=== PATIENT | male | born 1940 | race Caucasian/White ===

== ENCOUNTER 2017-11-07 15:31 | Inpatient (IN) | payer OTHER, MEDICARE ==
[2017-11-07] VITALS (10 sets, daily range): BP systolic 162–246; BP diastolic 80–108; PULSE 80–92; RESP 16–22; TEMP 98.3; O2SAT 93–98
[~2017-11-07] VITALS: Ht 181.6 cm; Wt 78.0 kg
[~2017-11-07 15:31] MED LIST: ADAL60TA9 PO; ATEN1TAB74 PO; ATOR20TA PO; ATRO17AE INH; CLON.2 PO; COUM5TAB PO; COUM7.5T PO; DOCU100T9 PO; FISH100020 PO; GABA100C4 PO; LISI20 PO; NITR.4 SL; OMEP20TA39 PO; OXYB5TAB PO; POTA-243 PO; TAB-TAB PO; TAMS0.4C67 PO; TRAM50 PO; VITATAB25 PO
[2017-11-07] MEDS ORDERED: IOHEXOL 350 MG/ML 10 ML VIAL (for RAD DIAG) IVCONTRAST ONE (15:32)
[2017-11-07] MEDS ORDERED: SODIUM CHLOR 0.9% 1000 ML INJ 1,000 ML IV SCH (15:46)
[2017-11-07] MEDS ORDERED: ONDANSETRON HCL 4 MG/2 ML VIAL ONE (15:48)
[2017-11-07] MEDS ORDERED: SODIUM CHLORIDE 0.9% FLUSH 10 ML FLUSH IV FLUSH PRN ×2 (16:00→22:15)
[2017-11-07] MEDS ORDERED: ONDANSETRON HCL 4 MG/2 ML VIAL IVP ONE (16:00)
[2017-11-07 16:08] LABS: AUTOMATED NEUTROPHIL # 11.7 TH/MM3 (1.8-7.7); BASOPHIL # 0.1 TH/MM3 (0-0.2); BASOPHIL % 0.5 % (0.0-2.0); HEMATOCRIT 50.3 % (39.0-51.0); HEMOGLOBIN 16.5 GM/DL (13.0-17.0); LYMPH % 13.7 % (9.0-44.0); MEAN CELL VOLUME 89.8 FL (80.0-100.0); MEAN CORPUSCULAR HEMOGLOBIN 29.5 PG (27.0-34.0); MEAN CORPUSCULAR HGB CONC 32.9 % (32.0-36.0); MEAN PLATELET VOLUME 8.9 FL (7.0-11.0); NEUT % 78.8 % (16.0-70.0); PLATELET COUNT 410 TH/MM3 (150-450); RED CELL DISTRIBUTION WIDTH 13.7 % (11.6-17.2); WHITE BLOOD COUNT 14.9 TH/MM3 (4.0-11.0)
[2017-11-07] MEDS ORDERED: METOCLOPRAMIDE HCL 10 MG/2 ML VIAL IV PUSH ONE (16:30)
[2017-11-07 16:37] LABS: ALKALINE PHOSPHATASE 90 U/L (45-117); TOTAL BILIRUBIN ADULT 0.5 MG/DL (0.2-1.0); TOTAL PROTEIN 7.7 GM/DL (6.4-8.2)
--- NOTE | 2017-11-07 16:37 | PD ---
HPI Chief Complaint: GI Complaint Time Seen by Provider: 15:37 Travel History International Travel<30 days: No Contact w/Intl Traveler<30days: No Traveled to known affect area: No History of Present Illness HPI 77-year-old male patient presents emergency department via EMS for evaluation after acute onset nausea and vomiting that occurred while he is at the [facility] today. Patient states he ate a tuna fish sandwich for lunch prior to going to the [facility] for routine blood work. Patient vomited undigested food. No hematemesis. Patient is continuing to retch but vomiting has ceased. Patient was recently admitted to [facility] in [facility] on with INR of 8. Patient was taken off of his Coumadin and given vitamin K. Patient states they found fluid on his lungs and he was admitted to the hospital for further workup. Patient was discharged a couple days ago. 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 Patient is on Coumadin for his abdominal replacement however is given Lovenox at this time due to his high INR 4 days ago. Patient states he is unsure if they're trying to bridge him back onto the Coumadin regimen at this time. Patient denies any smoking or alcohol. Patient states he hasn't smoked in 10 years. Patient denies any fevers, chills, malaise. She denies any cough or nasal congestion. Patient is noted to be retching at our facility. PFSH Past Medical History Hx Anticoagulant Therapy: Yes (WARFARIN AND LOVENOX) AAA: Yes Heart Rhythm Problems: Yes Cancer: No Cardiovascular Problems: Yes High Cholesterol: Yes Chest Pain: No Congestive Heart Failure: No Cerebrovascular Accident: Yes Coronary Artery Disease: Yes Diminished Hearing: No Diverticulitis: Yes Endocrine: No Gastrointestinal Disorders: Yes (STOMACH PAIN) GERD: Yes Hepatitis: No Hiatal Hernia: Yes Hypertension: Yes Immune Disorder: No Medical other: Yes (PVD) Musculoskeletal: Yes Neurologic: Yes (NEUROPATHY TA LEGS) Psychiatric: No Respiratory: Yes Myocardial Infarction: Yes Ulcer: Yes ?: Not Past Surgical History Abdominal Surgery: Yes (HERNIA AGE 1) AICD: Yes (BIOTRONIK ) Body Medical Devices: METAL AORTIC VALVE Cardiac Surgery: Yes (AORTIC VALVE REPLACEMENT AND AORTIC STENT,DEFIBRILLATOR) Coronary Stent: Yes Ear Surgery: No Endocrine Surgery: No Eye Surgery: No Genitourinary Surgery: Yes (LEFT IHR) Joint Replacement: Yes (LEFT KNEE) Neurologic Surgery: No Oral Surgery: Yes (TONSILLECTOMY) Pacemaker: Yes (BIOTRONIK ) Prostatectomy: No Thoracic Surgery: No Tonsillectomy: Yes Valve Replacement: Yes (AORTIC) Other Surgery: Yes (LEFT KNEE REPLACEMENT, AAA REPAIR) Social History Alcohol Use: No Tobacco Use: No Substance Use: No Allergies-Medications (Allergen,Severity, Reaction): Coded Allergies: povidone-iodine (Unverified Allergy, Severe, BLISTERING TO TOPICAL BETADINE, 11/07/17) soap (Verified Allergy, Unknown, 11/07/17) Reported Meds & Prescriptions Reported Meds & Active Scripts Active Zofran Odt (Ondansetron Odt) 4 Mg Tab 4 Mg SL Q6HR PRN Reported Warfarin 5 Mg Tab 5 Mg PO DAILY Trospium ER 60 Mg Cap 20 Mg PO DAILY Tramadol (Tramadol HCl) 50 Mg Tab 50 Mg PO Q6H PRN Tamsulosin (Tamsulosin HCl) 0.4 Mg Cap 0.4 Mg PO HS Potassium Chloride ER (Potassium Chloride) 20 Meq Tab 20 Meq PO DAILY Pantoprazole (Pantoprazole Sodium) 20 Mg Tab 20 Mg PO DAILY Clonidine (Clonidine HCl) 0.2 Mg Tab 0.2 Mg PO DAILY Vitamin D3 (Cholecalciferol) 1,000 Unit Cap 1,000 Units PO DAILY Atorvastatin (Atorvastatin Calcium) 20 Mg Tab 20 Mg PO HS Ventolin Hfa 18 GM Inh (Albuterol Sulfate) 90 Mcg/Act Aer 1 Puff INH Q4H PRN Atenolol 50 Mg Tab 50 Mg PO DAILY Review of Systems Except as stated in HPI: all other systems reviewed are Neg Physical Exam Narrative GENERAL: Well-nourished, well-developed 77-year-old male patient that is in moderate distress with continued retching. SKIN: Focused skin assessment pale/cool/dry. HEAD: Atraumatic. Normocephalic. EYES: Pupils equal and round. No scleral icterus. No injection or drainage. ENT: No nasal bleeding or discharge. Mucous membranes pink and moist. NECK: Trachea midline. No JVD. CARDIOVASCULAR: Regular rate and rhythm. No murmur appreciated. RESPIRATORY: No accessory muscle use. Clear to auscultation. Breath sounds equal bilaterally. GASTROINTESTINAL: Abdomen soft, diffusely tender to palpation, more tender in the epigastric region, nondistended. Negative Bella sign, no rebound tenderness. MUSCULOSKELETAL: No obvious deformities. No clubbing. No cyanosis. No edema. NEUROLOGICAL: Awake and alert. No obvious cranial nerve deficits. Motor grossly within normal limits. Normal speech. Data Data Last Documented VS Vital Signs Date Time Temp Pulse Resp B/P (MAP) Pulse Ox O2 Delivery O2 Flow Rate FiO2 11/07/17 21:35 82 16 227/104 (145) 95 11/07/17 16:28 98.3 Orders Orders Complete Blood Count With Diff (11/07/17 15:46) Comprehensive Metabolic Panel (11/07/17 15:46) Lipase (11/07/17 15:46) Prothrombin Time / Inr (Pt) (11/07/17 15:46) Act Partial Throm Time (Ptt) (11/07/17 15:46) Urinalysis - C+S If Indicated (11/07/17 15:46) Ct Abd/Pel W Iv Contrast(Rout) (11/07/17 15:46) Iv Access Insert/Monitor (11/07/17 15:46) Ecg Monitoring (11/07/17 15:46) Oximetry (11/07/17 15:46) Ondansetron Inj (Zofran Inj) (11/07/17 16:00) Sodium Chlor 0.9% 1000 Ml Inj (Ns 1000 M (11/07/17 15:46) Sodium Chloride 0.9% Flush (Ns Flush) (11/07/17 16:00) Electrocardiogram (11/07/17 15:46) Ondansetron Inj (Zofran Inj) (11/07/17 15:48) Metoclopramide Inj (Reglan Inj) (11/07/17 16:30) Chest, Single Ap (11/07/17 17:02) Iohexol 350 Inj (Omnipaque 350 Inj) (11/07/17 15:32) Ketorolac Inj (Toradol Inj) (11/07/17 17:45) Morphine Inj (Morphine Inj) (11/07/17 18:30) Labetalol Inj (Trandate Inj) (11/07/17 18:30) Sodium Chlor 0.9% 1000 Ml Inj (Ns 1000 M (11/07/17 18:30) Morphine Inj (Morphine Inj) (11/07/17 19:00) Enoxaparin Inj (Lovenox Inj) (11/07/17 20:00) Clonidine (Catapres) (11/07/17 20:45) Promethazine Inj (Phenergan Inj) (11/07/17 21:15) B-Type Natriuretic Peptide (11/07/17 21:35) Furosemide Inj (Lasix Inj) (11/07/17 21:45) Labetalol Inj (Trandate Inj) (11/07/17 21:45) Labetalol Inj (Trandate Inj) (11/07/17 21:45) Admit Order (Ed Use Only) (11/07/17 21:51) Labs Laboratory Tests Test 11/07/17 15:50 11/07/17 16:20 11/07/17 17:30 White Blood Count 14.9 TH/MM3 Red Blood Count 5.60 MIL/MM3 Hemoglobin 16.5 GM/DL Hematocrit 50.3 % Mean Corpuscular Volume 89.8 FL Mean Corpuscular Hemoglobin 29.5 PG Mean Corpuscular Hemoglobin Concent 32.9 % Red Cell Distribution Width 13.7 % Platelet Count 410 TH/MM3 Mean Platelet Volume 8.9 FL Neutrophils (%) (Auto) 78.8 % Lymphocytes (%) (Auto) 13.7 % Monocytes (%) (Auto) 7.0 % Eosinophils (%) (Auto) 0.0 % Basophils (%) (Auto) 0.5 % Neutrophils # (Auto) 11.7 TH/MM3 Lymphocytes # (Auto) 2.0 TH/MM3 Monocytes # (Auto) 1.0 TH/MM3 Eosinophils # (Auto) 0.0 TH/MM3 Basophils # (Auto) 0.1 TH/MM3 CBC Comment AUTO DIFF Differential Comment AUTO DIFF CONFIRMED Platelet Estimate Platelet Morphology Comment Red Cell Morphology Comment Blood Urea Nitrogen 40 MG/DL Creatinine 1.12 MG/DL Random Glucose 239 MG/DL Total Protein 7.7 GM/DL Albumin 3.3 GM/DL Calcium Level 9.0 MG/DL Alkaline Phosphatase 90 U/L Aspartate Amino Transf (AST/SGOT) 30 U/L Alanine Aminotransferase (ALT/SGPT) 17 U/L Total Bilirubin 0.5 MG/DL Sodium Level 136 MEQ/L Potassium Level 4.6 MEQ/L Chloride Level 99 MEQ/L Carbon Dioxide Level 28.5 MEQ/L Anion Gap 9 MEQ/L Estimat Glomerular Filtration Rate 63 ML/MIN Lipase 124 U/L Prothrombin Time 11.5 SEC Prothromb Time International Ratio 1.1 RATIO Activated Partial Thromboplast Time 22.5 SEC Urine Color YELLOW Urine Turbidity CLEAR Urine pH 6.5 Urine Specific Kosse 1.029 Urine Protein TRACE mg/dL Urine Glucose (UA) 70 mg/dL Urine Ketones TRACE mg/dL Urine Occult Blood NEG Urine Nitrite NEG Urine Bilirubin NEG Urine Urobilinogen LESS THAN 2.0 MG/DL Urine Leukocyte Esterase NEG Urine RBC LESS THAN 1 /hpf Urine WBC LESS THAN 1 /hpf Urine Squamous Epithelial Cells <1 /hpf Urine Mucus FEW /lpf Microscopic Urinalysis Comment CULT NOT INDICATED MDM Medical Decision Making Medical Screen Exam Complete: Yes Emergency Medical Condition: Yes Interpretation(s) Hypertensive, afebrile Differential Diagnosis Differential diagnoses include but not limited to gastroenteritis, foodborne illness, electrolyte abnormality, coronary event Narrative Course Patient placed on monitor and IV obtained. Blood work sent to the lab. CBC, CMP, lipase, PT INR, UA ordered and pending. CT of the abdomen ordered and pending. Chest x-ray ordered and pending. EKG ordered and interpreted. EKG shows atrial pacemaker with HR 80. 4mg Zofran IV ordered. Patient continued to retch. 10mg IV Reglan ordered. Patient's retching resolved. 1L NS bolus given. CBC shows leukocytosis at 14.9 CMP shows BUN 40 and creatinine 1.12, GFR 63, Glucose 239, Albumin 3.3 Lipase 124 PT/INR APTT 22.5 otherwise no acute abnormality UA show glucose and keytones, no other acute abnormality Chest x-ray shows cardiomegaly, no acute pulmonary disease. 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 Patient given morphine and Toradol for pain management. Patient's BP elevated. Patient given labetalol IV and Catapres by mouth. Patient's blood pressure is not trending downward. Patient's blood pressure remains elevated and is 242/112 currently. We finally received the paperwork from [facility], as requested upon patient's arrival and it shows that with the patient was admitted there he had congestive heart failure. Patient given 40 mg IV Lasix. The patient did receive normal saline bolus in our facility prior to the paperwork showing hx of CHF. Pt did not report hx of CHF. Patient will be admitted to the hospital for intractable nausea, vomiting and hypertensive crisis. And possible fluid overload. Initial chest x-ray shows no acute disease. Dr Laura accepts admission. Patient placed on a labetalol drip and admitted to the hospital for further observation. Chest X-Ray 11/07/17 1702 Signed Impressions: Service Date/Time: November 17:36 - CONCLUSION: 1. Cardiomegaly. No acute pulmonary disease. Shin Jackson MD Abdomen/Pelvis CT 11/07/17 1546 Signed Impressions: Service Date/Time: November 17:00 - CONCLUSION: 1. 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 2. Occluded left iliac limb of the aortobiiliac graft. 3. Probable scar or atelectasis and/or infiltrate left lung base and follow up is suggested with noncontrast chest CT in 6 months. Juana Michel MD Diagnosis Primary Impression: Nausea & vomiting Qualified Codes: R11.2 - Nausea with vomiting, unspecified Additional Impression: HTN (hypertension) Qualified Codes: I10 - Essential (primary) hypertension Admitting Information Admitting Physician Requests: Observation Referrals: Primary Care Physician Patient Instructions: Acute Nausea and Vomiting (ED), General Instructions Additional Instructions: Please return to emergency department if your symptoms return or worsen. Follow up with your primary care provider. Take Zofran as directed as needed for nausea or vomiting. Stay hydrated. CT shows scar, atelectasis and/or infiltrate in the left lung base. Noncontrasted chest CT was recommended in 6 months for follow-up. Med/Other Pt SpecificInfo: Prescription(s) given Scripts Ondansetron Odt (Zofran Odt) 4 Mg Tab 4 MG SL Q6HR Y for Nausea/Vomiting, #15 TAB 0 Refills Prov: Veda Tenorio 11/07/17 Disposition: 01 DISCHARGE HOME Condition: Stable Veda Tenorio Nov 07, 2017 16:37
[2017-11-07 16:39] LABS: ALBUMIN 3.3 GM/DL (3.4-5.0); ALT (GPT) 17 U/L (12-78); AST (GOT) 30 U/L (15-37); BICARBONATE 28.5 MEQ/L (21.0-32.0); BLOOD UREA NITROGEN 40 MG/DL (7-18); CHLORIDE 99 MEQ/L (98-107); CREATININE 1.12 MG/DL (0.60-1.30); GLOMERULAR FILTRATION RATE 63 ML/MIN (>89); GLUCOSE,RANDOM 239 MG/DL (74-106); LIPASE 124 U/L (73-393); SODIUM (NA) 136 MEQ/L (136-145)
[2017-11-07] MEDS ORDERED: CLON0.2T PO (17:18)
[2017-11-07] MEDS ORDERED: PANT20TA2 PO (17:18)
[2017-11-07] MEDS ORDERED: TAMS0.4C4 PO (17:18)
[2017-11-07] MEDS ORDERED: VENTAER INH (17:18)
[2017-11-07] MEDS ORDERED: WARF-23 PO (17:18)
[2017-11-07] MEDS ORDERED: TROS60CA2 PO (17:18)
[2017-11-07] MEDS ORDERED: POTA-163 PO (17:18)
[2017-11-07] MEDS ORDERED: CHOL10008 PO (17:18)
[2017-11-07] MEDS ORDERED: ATOR20TA15 PO (17:18)
[2017-11-07] MEDS ORDERED: ATEN50TA PO (17:18)
[2017-11-07] MEDS ORDERED: TRAM50TA PO (17:18)
--- NOTE | 2017-11-07 17:34 | RADRPT ---
EXAM DATE/TIME: 11/07/2017 17:00 [facility] COMPARISON: No previous studies available for comparison. INDICATIONS : Diffuse abdomen in epigastric region. IV CONTRAST: 76 cc Omnipaque 350 (iohexol) IV ORAL CONTRAST: No oral contrast ingested. RADIATION DOSE: 6.85 CTDIvol (mGy) MEDICAL HISTORY : Cardiovascular disease. Diverticulosis. Hypertension.Hiatal hernia. SURGICAL HISTORY : Pacemaker. Defibrillator. ENCOUNTER: Initial ACUITY: 1 week PAIN SCALE: 7/10 LOCATION: Bilateral upper quadrant TECHNIQUE: Volumetric scanning of the abdomen and pelvis was performed. Using automated exposure control and adjustment of the mA and/or kV according to patient size, radiation dose was kept as low as reasonably achievable to obtain optimal diagnostic quality images. DICOM format image data is av ailable electronically for review and comparison. FINDINGS: CT Abdomen: The liver, spleen, pancreas, left kidney, adrenals are unremarkable. There is scarring in the right upper pole kidney and there is an approximate 2.6 cm mass or pathological lymph nodes at t he level of the renal hilum in the retroperitoneum behind the IVC. There is no evidence for any appre ciable free fluid, or bowel obstruction. Slight left lung base area of irregular density is present posteriorly may represent atelectasis or scar, however should be followed. Aortobiiliac stent is iden tified and the left iliac graft does not have any contrast in it and occluded for the most part. The graft however is not adequately characterize. There are gas bubbles in the subcutaneous tissues anter iorly probably from injection sites. CT pelvis: There is no evidence for mass, abscess formation, or any significant adenopathy within the pelvis. The prostate gland is inhomogeneous and measures 3.8 x 4.0 cm in AP and transverse diameters and nonspecific. There are scattered diverticuli mainly in the sigmoid colon without definite signs of diverticulitis. CONCLUSION: 1. 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 2. Occluded left iliac limb of the aortobiiliac graft. 3. Probable scar or atelectasis and/or infiltrate left lung base and follow up is suggested with nonc ontrast chest CT in 6 months. Juana Michel MD on November 07, 2017 at 17:23 Board Certified Radiologist. This report was verified electronically.
[2017-11-07] MEDS ORDERED: KETOROLAC TROMETHAMINE 30 MG/ML (IVP) VIAL IV PUSH ONE (17:45)
--- NOTE | 2017-11-07 17:50 | RADRPT ---
EXAM DATE/TIME: 11/07/2017 17:36 [facility] COMPARISON: CHEST SINGLE AP, August 21, 2016, 14:29. INDICATIONS : Abdominal pain. No chest complaints. MEDICAL HISTORY : Myocardial infarction. Hypercholesterolemia. Hypertension. Abdominal aortic aneurysm, coronary ar kiel disease, Irregular heart beat. SURGICAL HISTORY : Aortic valve replacement. Aortic stent. Defibrillator. ENCOUNTER: Initial ACUITY: 3 days PAIN SCORE: 6/10 LOCATION: Bilateral chest FINDINGS: The cardiac silhouette is enlarged in transverse diameter. Median sternotomy wires are present. A bip olar pacemaker is in place via a left sided approach. The lungs are free of acute parenchymal opacity . No effusions are identified. The background interstitium is prominent though this is likely chronic in nature. CONCLUSION: 1. Cardiomegaly. No acute pulmonary disease. Shin Jackson MD on November 07, 2017 at 17:47 Board Certified Radiologist. This report was verified electronically.
[2017-11-07 18:12] LABS: INTERNATIONAL NORMALIZED RATIO 1.1 RATIO; PROTHROMBIN TIME - PATIENT 11.5 SEC (9.8-11.6)
[2017-11-07 18:25] LABS: BILIRUBIN, URINE NEG (NEG); BLOOD, URINE NEG (NEG); GLUCOSE,URINE 70 mg/dL (NEG); KETONE, URINE TRACE mg/dL (NEG); MUCUS URINE FEW /lpf (OCC); NITRITE,URINE NEG (NEG); PH, URINE 6.5 (5.0-8.5); SQUAMOUS EPITHELIAL CELL URINE <1 /hpf (0-5); URINE COLOR YELLOW (YELLW/STRAW); URINE LEUKOCYTE ESTERASE NEG (NEG)
[2017-11-07] MEDS ORDERED: LABETALOL HCL 100 MG/20 ML VIAL IV PUSH ONE ×2 (18:30→21:45)
[2017-11-07] MEDS ORDERED: SODIUM CHLOR 0.9% 1000 ML INJ 1,000 ML IV ONE (18:30)
[2017-11-07] MEDS ORDERED: MORPHINE SULFATE 2 MG/ML INJ IV PUSH ONE ×2 (18:30→19:00)
[2017-11-07] MEDS ORDERED: ZOFR4TAB3 SL (19:55)
[2017-11-07] MEDS ORDERED: ENOXAPARIN SODIUM 80 MG/0.8 ML SYRINGE SQ ONE (20:00)
[2017-11-07] MEDS ORDERED: cloNIDine HCL 0.2 MG TAB PO ONE (20:45)
[2017-11-07] MEDS ORDERED: PROMETHAZINE INJ 25 MG/ML VIAL IM ONE (21:15)
[2017-11-07] MEDS ORDERED: FUROSEMIDE 40 MG/4 ML VIAL IV PUSH ONE (21:45)
[2017-11-07] MEDS ORDERED: ACETAMINOPHEN 325 MG TAB PO PRN (22:15)
[2017-11-07] MEDS ORDERED: MAGNESIUM HYDROXIDE SUSP 30 ML CUP PO PRN (22:15)
[2017-11-07] MEDS ORDERED: NALOXONE HCL 0.4 MG/ML AMP IV PUSH PRN (22:15)
[2017-11-07] MEDS ORDERED: SENNOSIDES 8.6 MG TAB PO PRN (22:15)
[2017-11-07] MEDS ORDERED: LACTULOSE SYRUP 20 GM/30 ML CUP PO PRN (22:15)
[2017-11-07] MEDS ORDERED: BISACODYL 10 MG SUPP RECTAL PRN (22:15)
[2017-11-07] MEDS: LABETALOL INJ 500 MG in SODIUM CHLORIDE 0.9% INJ 150 ML IV PRN (22:24)
[2017-11-07] MEDS ORDERED: ENOX80P SQ (22:54)
[2017-11-08] VITALS (13 sets, daily range): BP systolic 81–162; BP diastolic 42–86; PULSE 61–79; RESP 15–20; TEMP 97.6–98.1; O2SAT 92–96
[2017-11-08] MEDS: LABETALOL INJ 500 MG in SODIUM CHLORIDE 0.9% INJ 150 ML IV PRN ×2 (01:44→04:38)
[2017-11-08 04:28] LABS: AUTOMATED NEUTROPHIL # 8.6 TH/MM3 (1.8-7.7); BASOPHIL % 0.1 % (0.0-2.0); HEMATOCRIT 43.2 % (39.0-51.0); HEMOGLOBIN 14.8 GM/DL (13.0-17.0); LYMPH % 9.8 % (9.0-44.0); MEAN CELL VOLUME 89.8 FL (80.0-100.0); MEAN CORPUSCULAR HEMOGLOBIN 30.7 PG (27.0-34.0); MEAN CORPUSCULAR HGB CONC 34.2 % (32.0-36.0); MEAN PLATELET VOLUME 8.3 FL (7.0-11.0); MONO % 7.4 % (0.0-8.0); MONOCYTE # 0.8 TH/MM3 (0-0.9); NEUT % 82.7 % (16.0-70.0); PLATELET COUNT 282 TH/MM3 (150-450); RED BLOOD COUNT 4.81 MIL/MM3 (4.50-5.90); RED CELL DISTRIBUTION WIDTH 13.7 % (11.6-17.2); WHITE BLOOD COUNT 10.4 TH/MM3 (4.0-11.0)
[2017-11-08 04:48] LABS: BICARBONATE 29.4 MEQ/L (21.0-32.0); CALCIUM 8.1 MG/DL (8.5-10.1); CREATININE 1.03 MG/DL (0.60-1.30)
[2017-11-08] MEDS ORDERED: TROSPIUM 20 MG PO SCH (09:00)
[2017-11-08] MEDS: DOCUSATE SODIUM 50 MG/SENNA 8.6 MG TAB PO SCH ×2 (09:07→21:25)
[2017-11-08] MEDS: PANTOPRAZOLE SOD 20 MG DELAYED RELEASE TAB PO SCH (09:07)
[2017-11-08] MEDS: cloNIDine HCL 0.2 MG TAB PO SCH (09:07)
[2017-11-08] MEDS: ATENOLOL 50 MG TAB PO SCH (09:07)
[2017-11-08] MEDS: SODIUM CHLORIDE 0.9% FLUSH 10 ML FLUSH IV FLUSH SCH ×2 (09:08→21:25)
--- NOTE | 2017-11-08 12:07 | HHI.HP ---
[facility] Service [facility] Primary Care Physician [facility] Admission Diagnosis intractable nausea, hypertensive urgency, abdominal mass Diagnoses: Chief Complaint: intractable emesis and hypertensive urgency Travel History International Travel<30 Days: No Contact w/Intl Traveler <30 Da: No Traveled to Known Affected Are: No History of Present Illness This is a 77-year-old male past history of coronary artery disease status post AICD placement, AAA with stent placement, aortic valve replacement with artificial metal valve who presented with intractable emesis and hypertension urgency. Patient was woken up by me and did not want to give me a history. He was very upset that I woke him up. When I asked him what brought him in the hospital he stated that "They sent me here." When I asked who was they he stated " I do not know." Patient nurse then walked into the room during the interview. She asked him to sit up and he did. I then tried to ask more questions but he refused to answer. He only seems to answer simple yes or no questions. I also asked him who [facility] When I asked him if he took his medication he stated "I take my medication when I'm at home." He denied any emesis, nausea, pain, headache, visual changes, chest pain, palpitation, lightheadedness//dizziness. I also asked patient who his vascular surgeon and roving inspector were he stated that [facility]. He does follow commands. I reviewed medical records were stated that patient was recently admitted at [facility] where he was admitted due to CHF exacerbation and supratherapeutic INR. He was discharged on Lovenox bridging with Coumadin. Then patient developed nausea and vomiting after eating a tuna salad. It was also discovered in the ED that he was hypertensive with a systolic blood pressure in the 200. He was put on a labetalol drip and was transferred to the [facility]. During my interview with the patient he is now hypotensive and off the labetalol drip. When I discussed CT scan results about a possible mass. Patient stated that he has no history of cancer. All other review of system reviewed and negative. Past Family Social History Past Medical History [place] with AICD AAA with aortic stent Aortic valve replacement with artificial metal valve on anticoagulation with Coumadin History of colonic polyp Past Surgical History AICD, aortic valve replacement, colonoscopy with polyp removal, left total knee replacement, aortic stent for AAA Reported Medications Zofran Odt (Ondansetron Odt) 4 Mg Tab 4 Mg SL Q6HR PRN Lovenox Inj (Enoxaparin Sodium) 80 mg/0.8 ML Syr 80 Mg SQ DAILY Warfarin 5 Mg Tab 5 Mg PO DAILY Trospium ER 60 Mg Cap 20 Mg PO DAILY Tramadol (Tramadol HCl) 50 Mg Tab 50 Mg PO Q6H PRN Tamsulosin (Tamsulosin HCl) 0.4 Mg Cap 0.4 Mg PO HS Potassium Chloride ER (Potassium Chloride) 20 Meq Tab 20 Meq PO DAILY Pantoprazole (Pantoprazole Sodium) 20 Mg Tab 20 Mg PO DAILY Clonidine (Clonidine HCl) 0.2 Mg Tab 0.2 Mg PO DAILY Vitamin D3 (Cholecalciferol) 1,000 Unit Cap 1,000 Units PO DAILY Atorvastatin (Atorvastatin Calcium) 20 Mg Tab 20 Mg PO HS Ventolin Hfa 18 GM Inh (Albuterol Sulfate) 90 Mcg/Act Aer 1 Puff INH Q4H PRN Atenolol 50 Mg Tab 50 Mg PO DAILY Allergies: Coded Allergies: povidone-iodine (Unverified Allergy, Severe, BLISTERING TO TOPICAL BETADINE, 11/07/17) soap (Verified Allergy, Unknown, 11/07/17) Active Ordered Medications Current Medications Ondansetron HCl (Zofran Inj) 4 mg ONCE ONCE IVP Last administered on 11/07/17at 15:54; Start 11/07/17 at 16:00; Stop 11/07/17 at 16:01; Status DC Sodium Chloride 1,000 ml @ 1,000 mls/hr Q1H IV Last administered on 11/07/17at 16:15; Start 11/07/17 at 15:46; Stop 11/07/17 at 16:45; Status DC Sodium Chloride (NS Flush) 2 ml UNSCH PRN IV FLUSH FLUSH AFTER USING IV ACCESS ; Start 11/07/17 at 16:00; Stop 11/07/17 at 22:38; Status DC Ondansetron HCl (Zofran Inj) 4 mg STK-MED ONCE .ROUTE ; Start 11/07/17 at 15:48; Stop 11/07/17 at 15:49; Status DC Metoclopramide HCl (Reglan Inj) 10 mg ONCE ONCE IV PUSH Last administered on at 16:34; Start 11/07/17 at 16:30; Stop 11/07/17 at 16:31; Status DC Iohexol (Omnipaque 350 Inj) 76 ml STK-MED ONCE IVCONTRAST Last administered on 11/07/17at 15:32; Start 11/07/17 at 15:32; Stop 11/07/17 at 17:21; Status DC Ketorolac Tromethamine (Toradol Inj) 30 mg ONCE ONCE IV PUSH Last administered on 11/07/17at 18:17; Start 11/07/17 at 17:45; Stop 11/07/17 at 17:46; Status DC Morphine Sulfate (Morphine Inj) 4 mg ONCE ONCE IV PUSH Last administered on 11/07/17at 18:22; Start 11/07/17 at 18:30; Stop 11/07/17 at 18:31; Status DC Labetalol HCl (Trandate Inj) 20 mg ONCE ONCE IV PUSH Last administered on at 18:30; Start 11/07/17 at 18:30; Stop 11/07/17 at 18:31; Status DC Sodium Chloride 1,000 ml @ 999 mls/hr BOLUS ONCE IV Last administered on at 18:35; Start 11/07/17 at 18:30; Stop 11/07/17 at 19:30; Status DC Morphine Sulfate (Morphine Inj) 4 mg ONCE ONCE IV PUSH Last administered on 11/07/17at 19:05; Start 11/07/17 at 19:00; Stop 11/07/17 at 19:01; Status DC Enoxaparin Sodium (Lovenox Inj) 80 mg ONCE ONCE SQ Last administered on at 00:15; Start 11/07/17 at 20:00; Stop 11/07/17 at 20:01; Status DC Clonidine (Catapres) 0.2 mg ONCE ONCE PO Last administered on 11/07/17at 20:51; Start 11/07/17 at 20:45; Stop 11/07/17 at 20:46; Status DC Promethazine HCl (Phenergan Inj) 25 mg ONCE ONCE IM Last administered on at 21:09; Start 11/07/17 at 21:15; Stop 11/07/17 at 21:16; Status DC Furosemide (Lasix Inj) 40 mg ONCE ONCE IV PUSH Last administered on 11/07/17at 21:49; Start 11/07/17 at 21:45; Stop 11/07/17 at 21:46; Status DC Labetalol HCl (Trandate Inj) 10 mg BOLUS ONCE IV PUSH Last administered on 11/07at 21:45; Start 11/07/17 at 21:45; Stop 11/07/17 at 21:47; Status DC Labetalol HCl 500 mg/Sodium Chloride 250 ml @ 60 mls/hr TITRATE PRN IV Blood pressure management Last administered on 11/08/17at 04:38; Start 11/07/17 at 21:45 Promethazine HCl (Phenergan Inj) 25 mg Q4H PRN IM N/V resistent to Zofran; Start 11/07/17 at 22:15 Sodium Chloride (NS Flush) 2 ml UNSCH PRN IV FLUSH FLUSH AFTER USING IV ACCESS ; Start 11/07/17 at 22:15 Sodium Chloride (NS Flush) 2 ml BID IV FLUSH Last administered on 11/08/17at 09: 08; Start 11/08/17 at 09:00 Acetaminophen (Tylenol) 650 mg Q4H PRN PO TEMP > 100.4; Start 11/07/17 at 22:15 Ondansetron HCl (Zofran Inj) 4 mg Q6H PRN IVP NAUSEA OR VOMITING; Start at 22:15 Naloxone HCl (Narcan Inj) 0.4 mg UNSCH PRN IV PUSH SEE LABEL COMMENTS; Start at 22:15 Senna/Docusate Sodium (Lala-Colace) 1 tab BID PO Last administered on 11/08/17at 09:07; Start 11/08/17 at 09:00 Magnesium Hydroxide (Milk Of Magnesia Liq) 30 ml Q12H PRN PO Mild constipation ; Start 11/07/17 at 22:15 Sennosides (Senokot) 17.2 mg Q12H PRN PO Moderate constipation; Start 11/07/17 at 22:15 Bisacodyl (Dulcolax Supp) 10 mg DAILY PRN RECTAL SEVERE CONSITIPATION; Start at 22:15 Lactulose (Lactulose Liq) 30 ml DAILY PRN PO SEVERE CONSITIPATION; Start at 22:15 Atenolol (Tenormin) 50 mg DAILY PO Last administered on 11/08/17at 09:07; Start 11/08/17 at 09:00 Atorvastatin Calcium (Lipitor) 20 mg HS PO ; Start 11/08/17 at 21:00 Clonidine (Catapres) 0.2 mg DAILY PO Last administered on 11/08/17at 09:07; Start 11/08/17 at 09:00 Pantoprazole Sodium (Protonix) 20 mg DAILY PO Last administered on 11/08/17at 09: 07; Start 11/08/17 at 09:00 Tamsulosin HCl (Flomax) 0.4 mg HS PO ; Start 11/08/17 at 21:00 Patient Own Medication PT OWN MED: Trosp... DAILY PO ; Start 11/08/17 at 09:00; Status Future Hold Enoxaparin Sodium (Lovenox Inj) 30 mg Q24H SQ ; Start 11/08/17 at 20:00 Hydralazine HCl (Apresoline Inj) 20 mg Q4H PRN IV PUSH SBP>180 or DBP>110; Start 11/08/17 at 09:15 Family History Unable to obtain since patient does not want to participate interview due to being woken up for interview. Social History Unable to obtain since patient does not want to participate interview due to be woken up for interview. Physical Exam Vital Signs Vital Signs Date Time Temp Pulse Resp B/P (MAP) Pulse Ox O2 Delivery O2 Flow Rate FiO2 11/08/17 08:00 61 11/08/17 08:00 97.7 61 15 123/61 (81) 95 11/08/17 06:00 65 18 81/45 (57) 96 11/08/17 06:00 68 11/08/17 05:00 68 20 97/42 (60) 95 11/08/17 04:00 76 11/08/17 04:00 97.9 72 18 141/76 (97) 94 11/08/17 02:00 72 11/08/17 00:00 66 11/08/17 00:00 98.1 66 20 158/86 (110) 94 11/07/17 23:18 84 16 162/84 (110) 95 Room Air 11/07/17 23:13 80 16 170/80 (110) 95 11/07/17 21:35 82 16 227/104 (145) 95 11/07/17 19:33 84 16 196/92 (126) 93 11/07/17 19:23 85 22 215/102 (139) 93 11/07/17 18:31 92 229/97 (141) 11/07/17 17:40 80 246/108 (154) 11/07/17 16:28 98.3 11/07/17 15:55 209/99 (135) 11/07/17 15:46 86 18 209/99 (135) 98 Physical Exam GENERAL: This is a thin male in no acute distress. SKIN: No rashes, ecchymoses or lesions. Cool and dry. HEAD: Atraumatic. Normocephalic. No temporal or scalp tenderness. EYES: Pupils equal round and reactive. Extraocular motions intact. No scleral icterus. No injection or drainage. ENT: Nose without bleeding, purulent drainage or septal hematoma. Throat without erythema, tonsillar hypertrophy or exudate. Uvula midline. Airway patent. NECK: Trachea midline. No JVD or lymphadenopathy. Supple, nontender, no meningeal signs. CARDIOVASCULAR: Regular rate and rhythm with systolic heart murmur 4 out of 6. RESPIRATORY: Clear to auscultation. Breath sounds equal bilaterally. No wheezes , rales, or rhonchi. GASTROINTESTINAL: Abdomen soft, non-tender, nondistended. No hepato-splenomegaly , or palpable masses. No guarding. MUSCULOSKELETAL: Extremities without clubbing, cyanosis, or edema. No joint tenderness, effusion, or edema noted. No calf tenderness. Negative Homans sign bilaterally. NEUROLOGICAL: Awake and alert. Cranial nerves II through XII intact. Motor and sensory grossly within normal limits. Five out of 5 muscle strength in all muscle groups. Normal speech. Laboratory Laboratory Tests Test 11/07/17 15:50 11/07/17 16:20 11/07/17 17:30 11/07/17 21:55 White Blood Count 14.9 Red Blood Count 5.60 Hemoglobin 16.5 Hematocrit 50.3 Mean Corpuscular Volume 89.8 Mean Corpuscular Hemoglobin 29.5 Mean Corpuscular Hemoglobin Concent 32.9 Red Cell Distribution Width 13.7 Platelet Count 410 Mean Platelet Volume 8.9 Neutrophils (%) (Auto) 78.8 Lymphocytes (%) (Auto) 13.7 Monocytes (%) (Auto) 7.0 Eosinophils (%) (Auto) 0.0 Basophils (%) (Auto) 0.5 Neutrophils # (Auto) 11.7 Lymphocytes # (Auto) 2.0 Monocytes # (Auto) 1.0 Eosinophils # (Auto) 0.0 Basophils # (Auto) 0.1 CBC Comment AUTO DIFF Differential Comment AUTO DIFF CONFIRMED Platelet Estimate Platelet Morphology Comment Red Cell Morphology Comment Blood Urea Nitrogen 40 Creatinine 1.12 Random Glucose 239 Total Protein 7.7 Albumin 3.3 Calcium Level 9.0 Alkaline Phosphatase 90 Aspartate Amino Transf (AST/SGOT) 30 Alanine Aminotransferase (ALT/SGPT) 17 Total Bilirubin 0.5 Sodium Level 136 Potassium Level 4.6 Chloride Level 99 Carbon Dioxide Level 28.5 Anion Gap 9 Estimat Glomerular Filtration Rate 63 Lipase 124 Prothrombin Time 11.5 Prothromb Time International Ratio 1.1 Activated Partial Thromboplast Time 22.5 Urine Color YELLOW Urine Turbidity CLEAR Urine pH 6.5 Urine Specific [place] 1.029 Urine Protein TRACE Urine Glucose (UA) 70 Urine Ketones TRACE Urine Occult Blood NEG Urine Nitrite NEG Urine Bilirubin NEG Urine Urobilinogen LESS THAN 2.0 Urine Leukocyte Esterase NEG Urine RBC LESS THAN 1 Urine WBC LESS THAN 1 Urine Squamous Epithelial Cells <1 Urine Mucus FEW Microscopic Urinalysis Comment CULT NOT INDICATED B-Type Natriuretic Peptide 226 Test 11/08/17 00:00 11/08/17 04:06 Nasal Screen MRSA (PCR) MRSA NOT DETECTED White Blood Count 10.4 Red Blood Count 4.81 Hemoglobin 14.8 Hematocrit 43.2 Mean Corpuscular Volume 89.8 Mean Corpuscular Hemoglobin 30.7 Mean Corpuscular Hemoglobin Concent 34.2 Red Cell Distribution Width 13.7 Platelet Count 282 Mean Platelet Volume 8.3 Neutrophils (%) (Auto) 82.7 Lymphocytes (%) (Auto) 9.8 Monocytes (%) (Auto) 7.4 Eosinophils (%) (Auto) 0.0 Basophils (%) (Auto) 0.1 Neutrophils # (Auto) 8.6 Lymphocytes # (Auto) 1.0 Monocytes # (Auto) 0.8 Eosinophils # (Auto) 0.0 Basophils # (Auto) 0.0 CBC Comment DIFF FINAL Differential Comment Blood Urea Nitrogen 37 Creatinine 1.03 Random Glucose 176 Calcium Level 8.1 Sodium Level 141 Potassium Level 3.7 Chloride Level 100 Carbon Dioxide Level 29.4 Anion Gap 12 Estimat Glomerular Filtration Rate 70 Result Diagram: 11/08/17 0406 11/08/17 0406 Imaging Last Impressions Chest X-Ray 11/07/17 1702 Signed Impressions: Service Date/Time: November 17:36 - CONCLUSION: 1. Cardiomegaly. No acute pulmonary disease. Shin Jackson MD Abdomen/Pelvis CT 11/07/17 1546 Signed Impressions: Service Date/Time: November 17:00 - CONCLUSION: 1. 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 2. Occluded left iliac limb of the aortobiiliac graft. 3. Probable scar or atelectasis and/or infiltrate left lung base and follow up is suggested with noncontrast chest CT in 6 months. Juana Michel MD Capdebbyi VTE Risk Assessment Caprini VTE Risk Assessment: Mod/High Risk (score >= 2) Caprini Risk Assessment Model Point Value = 1 Point Value = 2 Point Value = 3 Point Value = 5 Age 41-60 Minor surgery BMI > 25 kg/m2 Swollen legs Varicose veins or History of unexplained or recurrent spontaneous Oral contraceptives or hormone replacement Sepsis (< 1 month) Serious lung disease, including pneumonia (< 1 month) Abnormal pulmonary function Acute myocardial infarction Congestive heart failure (< 1 month) History of inflammatory bowel disease Medical patient at bed rest Age 61-74 Arthroscopic surgery Major open surgery (> 45 min) Laparoscopic surgery (> 45 min) Malignancy Confined to bed (> 72 hours) Immobilizing plaster cast Central venous access Age >= 75 History of VTE Family history of VTE Factor V Leiden Prothrombin [id number] Lupus anticoagulant Anticardiolipin antibodies Elevated serum homocysteine Heparin-induced thrombocytopenia Other congenital or acquired thrombophilia Stroke (< 1 month) Elective arthroplasty Hip, pelvis, or leg fracture Acute spinal cord injury (< 1 month) Prophylaxis Regimen Total Risk Factor Score Risk Level Prophylaxis Regimen 0-1 Low Early ambulation 2 Moderate Order ONE of the following: *Sequential Compression Device (SCD) *Heparin 5000 units SQ BID 3-4 Higher Order ONE of the following medications: *Heparin 5000 units SQ TID *Enoxaparin/Lovenox 40 mg SQ daily (WT < 150 kg, CrCl > 30 mL/min) *Enoxaparin/Lovenox 30 mg SQ daily (WT < 150 kg, CrCl > 10-29 mL/min) *Enoxaparin/Lovenox 30 mg SQ BID (WT < 150 kg, CrCl > 30 mL/min) AND/OR *Sequential Compression Device (SCD) 5 or more Highest Order ONE of the following medications: *Heparin 5000 units SQ TID (Preferred with Epidurals) *Enoxaparin/Lovenox 40 mg SQ daily (WT < 150 kg, CrCl > 30 mL/min) *Enoxaparin/Lovenox 30 mg SQ daily (WT < 150 kg, CrCl > 10-29 mL/min) *Enoxaparin/Lovenox 30 mg SQ BID (WT < 150 kg, CrCl > 30 mL/min) AND *Sequential Compression Device (SCD) Assessment and Plan Assessment and Plan This is a 77-year-old male history of coronary disease as post AICD placement, mechanical aortic valve replacement, and AAA status post stent placement who presented with intractable emesis and hypertension urgency Hypertension urgency, asymptomatic -Patient was started on labetalol and now hypotensive. Labetalol already discontinued. -He may be noncompliance which is reason why he was hypertensive. -Will monitor and restart his oral medication once his blood pressure improved. Will give when necessary IV hydralazine as needed -Continue with telemetry. Mechanical aortic valve replacement -Patient currently on Lovenox and Coumadin. INR 1.1. -Patient seems to be noncompliant. Will restart Lovenox and Coumadin. [facility] Coronary artery disease -Continue statin but unable to restart antihypertensive medications secondary to hypotension. That will need to be held. 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 Oncologist consulted. Status post AAA with stent placement -CT scan shows an included left iliac limb of the aortobiiliac graft. -Will consult vascular surgeon. Patient stated that his vascular surgeon is at the [facility] but could not give me any names. DVT prophylaxis -Patient on therapeutic Lovenox bridging to Coumadin. Patient's nurse present during majority of interview. Discussed Condition With patient and his nurse Physician Certification 2 Midnight Certification Type: Admission for Inpatient Services Order for Inpatient Services The services are ordered in accordance with Medicare regulations or non- Medicare payer requirements, as applicable. In the case of services not specified as inpatient-only, they are appropriately provided as inpatient services in accordance with the 2-midnight benchmark. Estimated LOS (days): 3 3 days is the estimated time the patient will need to remain in the hospital, assuming treatment plan goals are met and no additional complications. Post-Hospital Plan: Kimberley Easley MD Nov 08, 2017 12:07
--- NOTE | 2017-11-08 13:48 | PD.VS.CON ---
History of Present Illness Chief Complaint: EVAR occlusion Consult Requested by: Dr. Woods, [facility] [place] of Present Illness 77 yo male admitted according to the records for nausea and according to the patient for HTN. He had a CT scan that showed an EVAR limb occlusion. The patient denies pain with legs other than knee pain but he has a history of TKR. Specifically he denies claudication. Past/Family/Social History Past Medical History CAD w/ MS AAA Past Surgical History EVAR some time ago (he says at but we have no records in the computer of him) AICD AVR L knee Family History [place] Home Medications Active Scripts Ondansetron Odt (Zofran Odt) 4 Mg Tab, 4 MG SL Q6HR Y for Nausea/Vomiting, #15 TAB 0 Refills Prov:Veda Tenorio 11/07/17 Reported Medications Enoxaparin Inj (Lovenox Inj) 80 mg/0.8 ML Syr, 80 MG SQ DAILY for Blood Clot Prevention, SYRINGE 0 Refills 11/07/17 Warfarin (Warfarin) 5 Mg Tab, 5 MG PO DAILY for Blood Clot Prevention, #30 TAB 0 Refills 11/07/17 Trospium ER (Trospium ER) 60 Mg Cap, 20 MG PO DAILY for Urinary Symptom Managemen, #30 CAP 0 Refills 11/07/17 Tramadol (Tramadol) 50 Mg Tab, 50 MG PO Q6H Y for PAIN, TAB 0 Refills 11/07/17 Tamsulosin (Tamsulosin) 0.4 Mg Cap, 0.4 MG PO HS for Manage Prostate Problems, # 30 CAP 0 Refills 11/07/17 Potassium Chloride ER (Potassium Chloride ER) 20 Meq Tab, 20 MEQ PO DAILY for Electrolyte Replacement, #30 TAB 0 Refills 11/07/17 Pantoprazole (Pantoprazole) 20 Mg Tab, 20 MG PO DAILY for Reflux, #30 TAB 0 Refills 11/07/17 Clonidine (Clonidine) 0.2 Mg Tab, 0.2 MG PO DAILY for Blood Pressure Management , #60 TAB 0 Refills 11/07/17 Cholecalciferol (Vitamin D3) 1,000 Unit Cap, 1000 UNITS PO DAILY for Nutritional Supplement, #1 BOTTLE 0 Refills 11/07/17 Atorvastatin (Atorvastatin) 20 Mg Tab, 20 MG PO HS for Cholesterol Management, # 30 TAB 0 Refills 11/07/17 Albuterol 18 GM Inh (Ventolin Hfa 18 GM Inh) 90 Mcg/Act Aer, 1 PUFF INH Q4H Y for SHORTNESS OF BREATH, #1 INHALER 0 Refills 11/07/17 Atenolol (Atenolol) 50 Mg Tab, 50 MG PO DAILY for Blood Pressure Management, # 30 TAB 0 Refills 11/07/17 Coded Allergies: povidone-iodine (Unverified Allergy, Severe, BLISTERING TO TOPICAL BETADINE, 11/07/17) soap (Verified Allergy, Unknown, 11/07/17) Review of Systems Cardiovascular: COMPLAINS OF: Palpitations, Dyspnea on Exertion, DENIES: Claudication Gastrointestinal: DENIES: Abdominal pain Musculoskeletal: COMPLAINS OF: Joint pain Physical Exam Vitals/I&O Date Time Temp Pulse Resp B/P (MAP) Pulse Ox O2 Delivery O2 Flow Rate FiO2 11/08/17 08:00 61 11/08/17 08:00 97.7 61 15 123/61 (81) 95 11/08/17 06:00 65 18 81/45 (57) 96 11/08/17 06:00 68 11/08/17 05:00 68 20 97/42 (60) 95 11/08/17 04:00 76 11/08/17 04:00 97.9 72 18 141/76 (97) 94 11/08/17 02:00 72 11/08/17 00:00 66 11/08/17 00:00 98.1 66 20 158/86 (110) 94 11/07/17 23:18 84 16 162/84 (110) 95 Room Air 11/07/17 23:13 80 16 170/80 (110) 95 11/07/17 21:35 82 16 227/104 (145) 95 11/07/17 19:33 84 16 196/92 (126) 93 11/07/17 19:23 85 22 215/102 (139) 93 11/07/17 18:31 92 229/97 (141) 11/07/17 17:40 80 246/108 (154) 11/07/17 16:28 98.3 11/07/17 15:55 209/99 (135) 11/07/17 15:46 86 18 209/99 (135) 98 11/08/17 11/08/1718 07:00 15:00 23:00 Intake Total 610 ml Output Total 650 ml Balance -40 ml Neuro: conversant, and modest historian HEENT: NC/AT; wears glasses Neck: trachea midline Heart: reg rate Lungs: clear Abdomen: soft, NT Vascular: palpable R femoral and no L femoral pulses Extremities: LIN well Laboratory Tests Test 11/07/17 15:50 11/07/17 16:20 11/07/17 17:30 11/07/17 21:55 White Blood Count 14.9 Red Blood Count 5.60 Hemoglobin 16.5 Hematocrit 50.3 Mean Corpuscular Volume 89.8 Mean Corpuscular Hemoglobin 29.5 Mean Corpuscular Hemoglobin Concent 32.9 Red Cell Distribution Width 13.7 Platelet Count 410 Mean Platelet Volume 8.9 Neutrophils (%) (Auto) 78.8 Lymphocytes (%) (Auto) 13.7 Monocytes (%) (Auto) 7.0 Eosinophils (%) (Auto) 0.0 Basophils (%) (Auto) 0.5 Neutrophils # (Auto) 11.7 Lymphocytes # (Auto) 2.0 Monocytes # (Auto) 1.0 Eosinophils # (Auto) 0.0 Basophils # (Auto) 0.1 CBC Comment AUTO DIFF Differential Comment AUTO DIFF CONFIRMED Platelet Estimate Platelet Morphology Comment Red Cell Morphology Comment Blood Urea Nitrogen 40 Creatinine 1.12 Random Glucose 239 Total Protein 7.7 Albumin 3.3 Calcium Level 9.0 Alkaline Phosphatase 90 Aspartate Amino Transf (AST/SGOT) 30 Alanine Aminotransferase (ALT/SGPT) 17 Total Bilirubin 0.5 Sodium Level 136 Potassium Level 4.6 Chloride Level 99 Carbon Dioxide Level 28.5 Anion Gap 9 Estimat Glomerular Filtration Rate 63 Lipase 124 Prothrombin Time 11.5 Prothromb Time International Ratio 1.1 Activated Partial Thromboplast Time 22.5 Urine Color YELLOW Urine Turbidity CLEAR Urine pH 6.5 Urine Specific [place] 1.029 Urine Protein TRACE Urine Glucose (UA) 70 Urine Ketones TRACE Urine Occult Blood NEG Urine Nitrite NEG Urine Bilirubin NEG Urine Urobilinogen LESS THAN 2.0 Urine Leukocyte Esterase NEG Urine RBC LESS THAN 1 Urine WBC LESS THAN 1 Urine Squamous Epithelial Cells <1 Urine Mucus FEW Microscopic Urinalysis Comment CULT NOT INDICATED B-Type Natriuretic Peptide 226 Test 11/08/17 00:00 11/08/17 04:06 Nasal Screen MRSA (PCR) MRSA NOT DETECTED White Blood Count 10.4 Red Blood Count 4.81 Hemoglobin 14.8 Hematocrit 43.2 Mean Corpuscular Volume 89.8 Mean Corpuscular Hemoglobin 30.7 Mean Corpuscular Hemoglobin Concent 34.2 Red Cell Distribution Width 13.7 Platelet Count 282 Mean Platelet Volume 8.3 Neutrophils (%) (Auto) 82.7 Lymphocytes (%) (Auto) 9.8 Monocytes (%) (Auto) 7.4 Eosinophils (%) (Auto) 0.0 Basophils (%) (Auto) 0.1 Neutrophils # (Auto) 8.6 Lymphocytes # (Auto) 1.0 Monocytes # (Auto) 0.8 Eosinophils # (Auto) 0.0 Basophils # (Auto) 0.0 CBC Comment DIFF FINAL Differential Comment Blood Urea Nitrogen 37 Creatinine 1.03 Random Glucose 176 Calcium Level 8.1 Sodium Level 141 Potassium Level 3.7 Chloride Level 100 Carbon Dioxide Level 29.4 Anion Gap 12 Estimat Glomerular Filtration Rate 70 Last 48 hours Impressions Chest X-Ray 11/07/17 1702 Signed Impressions: Service Date/Time: November 17:36 - CONCLUSION: 1. Cardiomegaly. No acute pulmonary disease. Shin Jackson MD Abdomen/Pelvis CT 11/07/17 1546 Signed Impressions: Service Date/Time: November 17:00 - CONCLUSION: 1. 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 2. Occluded left iliac limb of the aortobiiliac graft. 3. Probable scar or atelectasis and/or infiltrate left lung base and follow up is suggested with noncontrast chest CT in 6 months. 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 No symptoms of LLE ischemia. Can safely be followed up as outpatient which I will arrange. Sukhjinder العلي MD FACS VI leather stretcher [facility] - Heart and Vascular Surgery at [facility] [phone] Sukhjinder العلي MD Nov 08, 2017 13:48
[2017-11-08] MEDS ORDERED: WARFARIN SOD 5 MG TAB PO ONE (16:00)
[2017-11-08] MEDS: ENOXAPARIN SODIUM 80 MG/0.8 ML SYRINGE SQ SCH (16:13)
[2017-11-08] MEDS ORDERED: ENOXAPARIN SODIUM 30 MG/0.3 ML SYRINGE SQ SCH (20:00)
--- NOTE | 2017-11-08 20:11 | MB ---
cc: LAURIE PACHECO M.D. DATE OF CONSULTATION: 11/08/2017 REASON FOR CONSULTATION / CHIEF COMPLAINT: Dr. Laura requested a consultation for Mr. Combs regarding adenopathy suspicious for a malignancy. REFERRING PHYSICIAN: Dr. Laura. HISTORY OF PRESENT ILLNESS Mr. Combs is a 77-year-old man well established at the [facility]. He reports he was sent to [facility] [place] because of hypertension. Noted in the emergency room was a chief complaint of GI complaints. He has had vomiting and nausea. His anticoagulation was subtherapeutic. 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 There is also an occluded left iliac limb of the aortobiiliac graft. There is some scarring or infiltrate at the left lung base. For the adenopathy, hematology/oncology is consulted for recommendations. Mr. Combs was less than cooperative with the primary team being woken up in the morning. He was seen by Dr. Sukhjinder العلي. Dr. 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 He has no symptoms of lower extremity ischemia. A careful outpatient followup was recommended. He is in the ICU being monitored. His blood pressure was noted to be decreased early on and has recovered. It was significantly elevated with a systolic blood pressure over 200 when he first came in. Mr. Combs denies any fevers, chills or night sweats. He has had no unintentional weight loss. He is not nauseous at present. Denies any urinary complaints. He was seen [place] by [place] [facility]. His primary physician is Dr. Gomes. PAST MEDICAL HISTORY: 1. Coronary artery disease. 2. Abdominal aortic aneurysm. 3. Hypertension. PAST SURGICAL HISTORY: 1. Abdominal aortic aneurysm with aortic stent. 2. Aortic valve replacement. 3. Colonoscopy with polypectomy. 4. Left total knee replacement. 5. AICD placement. FAMILY HISTORY: Family history is significant for father with heart disease. Mother is . No family history of cancer. SOCIAL HISTORY: Denies any tobacco, alcohol or illicit drug use. He is currently retired. Previous inside sales territory manager. PHYSICAL EXAMINATION: VITAL SIGNS: Temperature 97.7 heart rate 63, blood pressure 162/70, saturation 94%. GENERAL: Mr. Combs is an elderly, chronically ill-appearing man. His hair is unkempt. He is awake, alert, cooperative. HEAD, EYES, EARS, NOSE, THROAT: His pupils are round, reactive to light and accommodation. His oropharynx clear. NECK: Supple. LUNGS: Lungs were clear anteriorly. CARDIOVASCULAR: Exam reveals an aortic valve click. ABDOMEN: Benign. LOWER EXTREMITIES: No edema. LYMPHATIC: No cervical or right axillary adenopathy. Small 1 cm soft flat lymph node in the left axilla. IMAGING STUDIES: CT scan is as described above. CT scan from January 02, 2008 reports no paraaortic or retrocrural adenopathy appreciated. ASSESSMENT AND PLAN: Mr. Combs is a 77-year-old man with multiple medical problems. He was admitted with nausea and vomiting and hypertension. His blood pressure is better controlled. 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 He has no acute limb ischemia. We discussed the CT scan findings. We discussed concern for the abnormal appearing lymph node. Risks and benefits of biopsy were discussed. He is well-established in the [facility]. We discussed the option of continuing his anticoagulant therapy as it is being titrated and proceeding with follow up at the [facility] for the mass. We will send copy of the report and this dictation to his primary physician, Dr. Gomes of the [facility] at the [facility]. The [facility] has their own oncology unit at [facility]. The patient expressed a desire to continue follow up there. He is asymptomatic from the above-said mass. He will ultimately need a biopsy that would be best coordinated through the [facility] where the patient is established. We will continue to monitor his progress throughout his hospitalization. I have given him my contact information should his [facility] physician have any questions. Mr. Combs's questions were answered to his satisfaction, and we have elected to defer biopsy of the lymph node until he gets back with the [facility] doctors. Laurie Pacheco MD RAD/JCC /6:29 PM /7:30 PM MTDBen
[2017-11-08] MEDS: ATORVASTATIN 20 MG TAB PO SCH (21:25)
[2017-11-08] MEDS: TAMSULOSIN HCL 0.4 MG CAP PO SCH (21:25)
--- NOTE | 2017-11-08 22:51 | EKG ---
Date Performed: 11/07/2017 Time Performed: 16:42:13 PTAGE: 77 years EKG: ELECTRONIC ATRIAL PACEMAKER ELECTRONIC VENTRICULAR PACEMAKER ABNORMAL RHYTHM ECG PREVIOUS TRACING : 08/21/2016 14.35 Compared to prior tracing no significant change DOCTOR: Benny Flores Interpretating Date/Time 11/08/2017 22:50:32
[2017-11-09] VITALS (32 sets, daily range): BP systolic 136–249; BP diastolic 63–128; PULSE 74–84; RESP 17–29; TEMP 97.9–98.5; O2SAT 93–96
[2017-11-09] MEDS: hydrALAZINE HCL 20 MG/ML VIAL IV PUSH PRN ×3 (00:08→07:45)
[2017-11-09] MEDS: ENOXAPARIN SODIUM 80 MG/0.8 ML SYRINGE SQ SCH ×2 (01:25→14:28)
[2017-11-09] MEDS: ONDANSETRON HCL 4 MG/2 ML VIAL IVP PRN ×2 (01:25→07:45)
[2017-11-09] MEDS: PROMETHAZINE INJ 25 MG/ML VIAL IM PRN ×2 (02:34→09:45)
[2017-11-09] MEDS ORDERED: TRIMETHOBENZAMIDE INJ 200 MG/2 ML VIAL IM PRN (05:30)
[2017-11-09] MEDS ORDERED: METOPROLOL TARTRATE 5 MG/5 ML VIAL IV PUSH ONE (06:45)
[2017-11-09 07:29] LABS: INTERNATIONAL NORMALIZED RATIO 1.1 RATIO
[2017-11-09] MEDS: ATENOLOL 50 MG TAB PO SCH (07:45)
[2017-11-09] MEDS: DOCUSATE SODIUM 50 MG/SENNA 8.6 MG TAB PO SCH ×2 (07:45→20:26)
[2017-11-09] MEDS: PANTOPRAZOLE SOD 20 MG DELAYED RELEASE TAB PO SCH (07:45)
[2017-11-09] MEDS: cloNIDine HCL 0.2 MG TAB PO SCH ×2 (07:45→20:25)
[2017-11-09] MEDS: SODIUM CHLORIDE 0.9% FLUSH 10 ML FLUSH IV FLUSH SCH ×2 (07:46→20:26)
[2017-11-09] MEDS: hydrALAZINE HCL 25 MG TAB PO SCH ×3 (09:28→20:26)
[2017-11-09] MEDS: LISINOPRIL 10 MG TAB PO SCH (09:29)
[2017-11-09] MEDS: niCARdipine INJ 25 MG in SODIUM CHLOR 0.9% 250 ML INJ 240 ML IV PRN ×4 (11:43→21:55)
--- NOTE | 2017-11-09 15:13 | HHI.PR ---
Subjective Remarks f/u for hypertensive urgency and intractable emesis patient SBP went to the 200s. He was put on cardene gtt with improvement. patient denied any HERNANDEZ, visual changes, CP, SOB, lightheadedness or dizziness. He stated continue to have abdominal pain all over but feels a lot better. + emesis and stated Results [employer]. Objective Vitals Vital Signs Date Time Temp Pulse Resp B/P (MAP) Pulse Ox O2 Delivery O2 Flow Rate FiO2 11/09/17 14:45 80 23 161/75 (103) 96 11/09/17 14:30 79 25 150/64 (92) 94 11/09/17 14:28 81 175/74 11/09/17 14:15 77 24 175/74 (107) 93 11/09/17 14:00 80 11/09/17 14:00 78 25 138/68 (91) 95 11/09/17 13:45 78 26 158/70 (99) 94 11/09/17 13:30 79 28 150/67 (94) 95 11/09/17 13:15 81 28 156/72 (100) 94 11/09/17 13:00 82 28 155/70 (98) 94 11/09/17 12:45 82 24 164/78 (106) 95 11/09/17 12:31 82 27 179/75 (109) 95 11/09/17 12:30 82 29 94 11/09/17 12:15 82 29 164/70 (101) 95 11/09/17 12:01 83 27 235/100 (145) 95 11/09/17 12:00 98.0 83 23 95 11/09/17 12:00 78 11/09/17 12:00 83 235/100 11/09/17 11:49 81 25 249/124 (165) 95 11/09/17 11:45 84 23 96 11/09/17 11:43 81 216/91 11/09/17 11:31 82 28 216/91 (132) 95 11/09/17 11:30 82 24 94 11/09/17 11:15 84 17 96 11/09/17 11:00 82 24 204/125 (151) 94 11/09/17 10:30 187/85 (119) 11/09/17 10:00 196/111 (139) 1/6/18 09:30 209/93 (131) 11/09/17 09:00 187/83 (117) 11/09/17 08:30 172/76 (108) 11/09/17 08:00 84 11/09/17 08:00 98.5 82 22 209/91 (130) 95 11/09/17 07:30 218/98 (138) 11/09/17 07:00 219/128 (158) 11/09/17 04:00 98.2 76 23 222/94 (136) 94 11/09/17 04:00 76 11/09/17 00:00 98.0 74 21 198/90 (126) 94 11/09/17 00:00 74 11/08/17 22:00 66 11/08/17 20:00 68 11/08/17 20:00 97.6 68 20 143/71 (95) 94 11/08/17 18:00 73 11/08/17 16:00 63 11/08/17 16:00 97.7 63 17 162/70 (100) 94 I/O 11/08/17 11/08/17 11/08/17 11/09/17 11/09/17 11/09/17 07:00 15:00 23:00 07:00 15:00 23:00 Intake Total 610 ml 900 ml Output Total 650 ml 400 ml 800 ml Balance -40 ml 500 ml -800 ml Intake Oral 360 ml 900 ml IV Total 250 ml Output Urine Total 650 ml 400 ml 500 ml Emesis 300 ml # Bowel Movements 0 0 Result Diagram: 11/08/17 0406 11/08/17 0406 Objective Remarks GENERAL: in NAD CARDIOVASCULAR: Regular rate and rhythm without murmurs, gallops, or rubs. RESPIRATORY: Breath sounds equal bilaterally. No accessory muscle use. GASTROINTESTINAL: Abdomen soft and nondistended. diffuse TTP with deep pressure. negative peritoneal signs. MUSCULOSKELETAL: No cyanosis, or edema. Medications and IVs Current Medications Ondansetron HCl (Zofran Inj) 4 mg ONCE ONCE IVP Last administered on 11/07/17at 15:54; Start 11/07/17 at 16:00; Stop 11/07/17 at 16:01; Status DC Sodium Chloride 1,000 ml @ 1,000 mls/hr Q1H IV Last administered on 11/07/17at 16:15; Start 11/07/17 at 15:46; Stop 11/07/17 at 16:45; Status DC Sodium Chloride (NS Flush) 2 ml UNSCH PRN IV FLUSH FLUSH AFTER USING IV ACCESS ; Start 11/07/17 at 16:00; Stop 11/07/17 at 22:38; Status DC Ondansetron HCl (Zofran Inj) 4 mg STK-MED ONCE .ROUTE ; Start 11/07/17 at 15:48; Stop 11/07/17 at 15:49; Status DC Metoclopramide HCl (Reglan Inj) 10 mg ONCE ONCE IV PUSH Last administered on at 16:34; Start 11/07/17 at 16:30; Stop 11/07/17 at 16:31; Status DC Iohexol (Omnipaque 350 Inj) 76 ml STK-MED ONCE IVCONTRAST Last administered on 11/07/17at 15:32; Start 11/07/17 at 15:32; Stop 11/07/17 at 17:21; Status DC Ketorolac Tromethamine (Toradol Inj) 30 mg ONCE ONCE IV PUSH Last administered on 11/07/17at 18:17; Start 11/07/17 at 17:45; Stop 11/07/17 at 17:46; Status DC Morphine Sulfate (Morphine Inj) 4 mg ONCE ONCE IV PUSH Last administered on 11/07/17at 18:22; Start 11/07/17 at 18:30; Stop 11/07/17 at 18:31; Status DC Labetalol HCl (Trandate Inj) 20 mg ONCE ONCE IV PUSH Last administered on at 18:30; Start 11/07/17 at 18:30; Stop 11/07/17 at 18:31; Status DC Sodium Chloride 1,000 ml @ 999 mls/hr BOLUS ONCE IV Last administered on at 18:35; Start 11/07/17 at 18:30; Stop 11/07/17 at 19:30; Status DC Morphine Sulfate (Morphine Inj) 4 mg ONCE ONCE IV PUSH Last administered on 11/07/17at 19:05; Start 11/07/17 at 19:00; Stop 11/07/17 at 19:01; Status DC Enoxaparin Sodium (Lovenox Inj) 80 mg ONCE ONCE SQ Last administered on at 00:15; Start 11/07/17 at 20:00; Stop 11/07/17 at 20:01; Status DC Clonidine (Catapres) 0.2 mg ONCE ONCE PO Last administered on 11/07/17at 20:51; Start 11/07/17 at 20:45; Stop 11/07/17 at 20:46; Status DC Promethazine HCl (Phenergan Inj) 25 mg ONCE ONCE IM Last administered on at 21:09; Start 11/07/17 at 21:15; Stop 11/07/17 at 21:16; Status DC Furosemide (Lasix Inj) 40 mg ONCE ONCE IV PUSH Last administered on 11/07/17at 21:49; Start 11/07/17 at 21:45; Stop 11/07/17 at 21:46; Status DC Labetalol HCl (Trandate Inj) 10 mg BOLUS ONCE IV PUSH Last administered on 11/07at 21:45; Start 11/07/17 at 21:45; Stop 11/07/17 at 21:47; Status DC Labetalol HCl 500 mg/Sodium Chloride 250 ml @ 60 mls/hr TITRATE PRN IV Blood pressure management Last administered on 11/08/17at 04:38; Start 11/07/17 at 21:45 Promethazine HCl (Phenergan Inj) 25 mg Q4H PRN IM N/V resistent to Zofran Last administered on 11/09/17at 09:45; Start 11/07/17 at 22:15 Sodium Chloride (NS Flush) 2 ml UNSCH PRN IV FLUSH FLUSH AFTER USING IV ACCESS ; Start 11/07/17 at 22:15 Sodium Chloride (NS Flush) 2 ml BID IV FLUSH Last administered on 11/09/17at 07: 46; Start 11/08/17 at 09:00 Acetaminophen (Tylenol) 650 mg Q4H PRN PO TEMP > 100.4; Start 11/07/17 at 22:15 Ondansetron HCl (Zofran Inj) 4 mg Q6H PRN IVP NAUSEA OR VOMITING Last administered on 11/09/17at 07:45; Start 11/07/17 at 22:15 Naloxone HCl (Narcan Inj) 0.4 mg UNSCH PRN IV PUSH SEE LABEL COMMENTS; Start at 22:15 Senna/Docusate Sodium (Lala-Colace) 1 tab BID PO Last administered on 11/09/17at 07:45; Start 11/08/17 at 09:00 Magnesium Hydroxide (Milk Of Magnesia Liq) 30 ml Q12H PRN PO Mild constipation ; Start 11/07/17 at 22:15 Sennosides (Senokot) 17.2 mg Q12H PRN PO Moderate constipation; Start 11/07/17 at 22:15 Bisacodyl (Dulcolax Supp) 10 mg DAILY PRN RECTAL SEVERE CONSITIPATION; Start at 22:15 Lactulose (Lactulose Liq) 30 ml DAILY PRN PO SEVERE CONSITIPATION; Start at 22:15 Atenolol (Tenormin) 50 mg DAILY PO Last administered on 11/09/17at 07:45; Start 11/08/17 at 09:00 Atorvastatin Calcium (Lipitor) 20 mg HS PO Last administered on 11/08/17at 21:25 ; Start 11/08/17 at 21:00 Clonidine (Catapres) 0.2 mg DAILY PO Last administered on 11/09/17at 07:45; Start 11/08/17 at 09:00; Stop 11/09/17 at 11:24; Status DC Pantoprazole Sodium (Protonix) 20 mg DAILY PO Last administered on 11/09/17at 07: 45; Start 11/08/17 at 09:00 Tamsulosin HCl (Flomax) 0.4 mg HS PO Last administered on 11/08/17at 21:25; Start 11/08/17 at 21:00 Patient Own Medication PT OWN MED: Trosp... DAILY PO ; Start 11/08/17 at 09:00; Status Future Hold Enoxaparin Sodium (Lovenox Inj) 30 mg Q24H SQ ; Start 11/08/17 at 20:00; Stop 11/08/17 at 20:00; Status DC Hydralazine HCl (Apresoline Inj) 20 mg Q4H PRN IV PUSH SBP>180 or DBP>110 Last administered on 11/09/17at 07:45; Start 11/08/17 at 09:15 Enoxaparin Sodium (Lovenox Inj) 80 mg Q12H SQ Last administered on 11/09/17at 14: 28; Start 11/08/17 at 14:00 Pharmacy Profile Note 0 ml @ 0 mls/hr UNSCH OTHER ; Start 11/08/17 at 12:15 Warfarin Sodium (Coumadin) 5 mg ONCE@1600 ONCE PO Last administered on at 16:13; Start 11/08/17 at 16:00; Stop 11/08/17 at 16:01; Status DC Trimethobenzamide HCl (Tigan Inj) 200 mg Q6H PRN IM NAUSEA/VOMITING Last administered on 11/09/17at 05:47; Start 11/09/17 at 05:30 Metoprolol Tartrate (Lopressor Inj) 5 mg ONCE ONCE IV PUSH Last administered on 11/09/17at 06:45; Start 11/09/17 at 06:45; Stop 11/09/17 at 06:48; Status DC Lisinopril (Prinivil) 10 mg DAILY PO Last administered on 11/09/17at 09:29; Start 11/09/17 at 09:30 Hydralazine HCl (Apresoline) 25 mg Q8HR PO Last administered on 11/09/17at 14:28 ; Start 11/09/17 at 09:30 Nicardipine HCl 25 mg/Sodium Chloride 250 ml @ 50 mls/hr TITRATE PRN IV Blood pressure management Last administered on 11/09/17at 14:28; Start 11/09/17 at 11:30 Clonidine (Catapres) 0.2 mg BID PO ; Start 11/09/17 at 21:00 Amlodipine Besylate (Norvasc) 10 mg DAILY PO Last administered on 11/09/17at 11: 55; Start 11/09/17 at 11:30 A/P Assessment and Plan This is a 77-year-old male history of coronary disease as post AICD placement, mechanical aortic valve replacement, and AAA status post stent placement who presented with intractable emesis and hypertension urgency Hypertension urgency, asymptomatic -s/p labetolol that caused hypotension. -now hypertensive SBP 200s will need to start cardene gtt. currently on atenolol, clonidine and lisinopril. -will increase clonidine to 0.2 mg PO BID, amlodipine and hydralazine. Mechanical aortic valve replacement -Patient currently on Lovenox and Coumadin. INR 1.1. -Patient seems to be noncompliant. on lovenox and coumadin. pharmacy consult. intractable emesis and mild abdominal pain -CT scan no acute process. -will get KUB, lipase and UA. -clinically improving. continue with supportive care. Coronary artery disease -continue home medication. 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 Oncologist consulted and stated not urgent and patient wants to follow up with his doctors at the [facility]. Status post AAA with stent placement -CT scan shows an included left iliac limb of the aortobiiliac graft. 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 patient has no symptoms and can f/u as outpatient. He will arrange. DVT prophylaxis -Patient on therapeutic Lovenox bridging to Coumadin. Discharge Planning d/w patient's nurse Kimberley Woods MD Nov 09, 2017 15:13
--- NOTE | 2017-11-09 15:52 | RADRPT ---
EXAM DATE/TIME: 11/09/2017 15:10 [place] COMPARISON: No previous studies available for comparison. INDICATIONS : Nausea. MEDICAL HISTORY : Myocardial infarction. Hypercholesterolemia. Cardiovascular disease. Hiatal hernia. Diverticulosis. H ypertension. Abdominal aortic aneurysm, coronary artery disease, Irregular heart beat. SURGICAL HISTORY : Aortic valve replacement. Aortic stent. Defibrillator. Pacemaker. ENCOUNTER: Initial ACUITY: 4 - 6 days PAIN SCORE: 0/10 LOCATION: abdomen FINDINGS: Supine view of the abdomen was performed. The abdominal bowel gas pattern is normal. No abnormal ma sses, calcifications, or organomegaly is seen. The osseous structures are unremarkable. Aortic stent graft is presentThere is multilevel degenerative change throughout the spine. There are calcificatio ns in the pelvis consistent with phleboliths. CONCLUSION: 1. No evidence of obstruction. Shin Jackson MD on November 09, 2017 at 15:49 Board Certified Radiologist. This report was verified electronically.
[2017-11-09] MEDS ORDERED: WARFARIN SOD 2.5 MG TAB PO ONE (16:00)
[2017-11-09 16:45] LABS: BILIRUBIN, URINE NEG (NEG); BLOOD, URINE NEG (NEG); GLUCOSE,URINE NEG (NEG); KETONE, URINE NEG (NEG); MUCUS URINE FEW /lpf (OCC); NITRITE,URINE NEG (NEG); SQUAMOUS EPITHELIAL CELL URINE 2 /hpf (0-5); URINE COLOR YELLOW (YELLW/STRAW); URINE LEUKOCYTE ESTERASE NEG (NEG)
[2017-11-09] MEDS: WARFARIN SOD 5 MG TAB PO SCH (16:55)
[2017-11-09] MEDS: TAMSULOSIN HCL 0.4 MG CAP PO SCH (20:25)
[2017-11-09] MEDS: ATORVASTATIN 20 MG TAB PO SCH (20:26)
[2017-11-10] VITALS: BP 106/55; PULSE 66; PULSE 70; RESP 25; TEMP 98.6; O2SAT 94
[2017-11-10] MEDS: niCARdipine INJ 25 MG in SODIUM CHLOR 0.9% 250 ML INJ 240 ML IV PRN (00:49)
[2017-11-10] MEDS: ENOXAPARIN SODIUM 80 MG/0.8 ML SYRINGE SQ SCH ×2 (00:50→14:17)
[2017-11-10 04:00] VITALS: BP 95/51; PULSE 66; RESP 18; TEMP 98.7; O2SAT 95
[2017-11-10] MEDS: hydrALAZINE HCL 25 MG TAB PO SCH ×3 (06:00→21:44)
[2017-11-10 07:52] LABS: INTERNATIONAL NORMALIZED RATIO 1.2 RATIO; PROTHROMBIN TIME - PATIENT 11.7 SEC (9.8-11.6)
[2017-11-10 08:00] VITALS: BP 119/59; PULSE 68; RESP 20; TEMP 98.5; O2SAT 95
[2017-11-10] MEDS: DOCUSATE SODIUM 50 MG/SENNA 8.6 MG TAB PO SCH ×2 (08:24→21:44)
[2017-11-10] MEDS: ATENOLOL 50 MG TAB PO SCH (08:24)
[2017-11-10] MEDS: LISINOPRIL 10 MG TAB PO SCH (08:25)
[2017-11-10] MEDS: PANTOPRAZOLE SOD 20 MG DELAYED RELEASE TAB PO SCH (08:25)
[2017-11-10] MEDS: SODIUM CHLORIDE 0.9% FLUSH 10 ML FLUSH IV FLUSH SCH ×2 (08:26→21:44)
[2017-11-10] MEDS: cloNIDine HCL 0.2 MG TAB PO SCH ×3 (08:26→21:44)
[2017-11-10 12:00] VITALS: BP 111/60; PULSE 62; RESP 21; TEMP 98.6; O2SAT 96
[2017-11-10] MEDS: ONDANSETRON HCL 4 MG/2 ML VIAL IVP PRN (14:48)
--- NOTE | 2017-11-10 15:46 | HHI.PR ---
Subjective Remarks Follow-up for hypertension Around 18 and the drip was off. This morning he was little more hypotensive after giving dose of lisinopril. When I saw patient he was actually hypertensive with a systolic blood pressure 175. Patient stated he is doing a lot better. He is tolerating his clear liquid diet. He asked for advancement of diet. Deny any nausea vomiting abdominal pain. He thought it was due to food poisoning with the tuna salad. He had no other issue. Discussed case at the bedside with patient's nurse Stormy. Objective Vitals Vital Signs Date Time Temp Pulse Resp B/P (MAP) Pulse Ox O2 Delivery O2 Flow Rate FiO2 11/10/17 12:00 62 11/10/17 12:00 98.6 62 21 111/60 (77) 96 11/10/17 08:00 68 11/10/17 08:00 98.5 68 20 119/59 (79) 95 11/10/17 04:00 66 11/10/17 04:00 98.7 66 18 95/51 (66) 95 11/10/17 01:00 72 87/50 11/10/17 00:49 71 71/47 11/10/17 00:25 66 107/53 11/10/17 00:00 98.6 70 25 106/55 (72) 94 11/10/17 00:00 66 11/09/17 21:55 75 141/60 11/09/17 20:00 98.2 75 25 136/63 (87) 94 11/09/17 20:00 75 11/09/17 18:53 79 142/64 11/09/17 16:00 74 11/09/17 16:00 97.9 74 23 138/63 (88) 93 I/O 11/09/17 11/09/17 11/09/17 11/10/17 11/10/17 11/10/17 07:00 15:00 23:00 07:00 15:00 23:00 Intake Total 550 ml 240 ml Output Total 800 ml 750 ml 550 ml Balance -800 ml -200 ml -310 ml Intake Oral 300 ml 240 ml IV Total 250 ml Output Urine Total 500 ml 750 ml 550 ml Emesis 300 ml # Bowel Movements 0 Result Diagram: 11/08/176 11/08/17405 Objective Remarks GENERAL: in NAD CARDIOVASCULAR: Regular rate and rhythm without murmurs, gallops, or rubs. RESPIRATORY: Breath sounds equal bilaterally. No accessory muscle use. GASTROINTESTINAL: Abdomen soft and nondistended. Negative for any tenderness to palpation. negative peritoneal signs. MUSCULOSKELETAL: No cyanosis, or edema. Medications and IVs Current Medications Ondansetron HCl (Zofran Inj) 4 mg ONCE ONCE IVP Last administered on 11/07/17at 15:54; Start 11/07/17 at 16:00; Stop 11/07/17 at 16:01; Status DC Sodium Chloride 1,000 ml @ 1,000 mls/hr Q1H IV Last administered on 11/07/17at 16:15; Start 11/07/17 at 15:46; Stop 11/07/17 at 16:45; Status DC Sodium Chloride (NS Flush) 2 ml UNSCH PRN IV FLUSH FLUSH AFTER USING IV ACCESS ; Start 11/07/17 at 16:00; Stop 11/07/17 at 22:38; Status DC Ondansetron HCl (Zofran Inj) 4 mg STK-MED ONCE .ROUTE ; Start 11/07/17 at 15:48; Stop 11/07/17 at 15:49; Status DC Metoclopramide HCl (Reglan Inj) 10 mg ONCE ONCE IV PUSH Last administered on at 16:34; Start 11/07/17 at 16:30; Stop 11/07/17 at 16:31; Status DC Iohexol (Omnipaque 350 Inj) 76 ml STK-MED ONCE IVCONTRAST Last administered on 11/07/17at 15:32; Start 11/07/17 at 15:32; Stop 11/07/17 at 17:21; Status DC Ketorolac Tromethamine (Toradol Inj) 30 mg ONCE ONCE IV PUSH Last administered on 11/07/17at 18:17; Start 11/07/17 at 17:45; Stop 11/07/17 at 17:46; Status DC Morphine Sulfate (Morphine Inj) 4 mg ONCE ONCE IV PUSH Last administered on 11/07/17at 18:22; Start 11/07/17 at 18:30; Stop 11/07/17 at 18:31; Status DC Labetalol HCl (Trandate Inj) 20 mg ONCE ONCE IV PUSH Last administered on at 18:30; Start 11/07/17 at 18:30; Stop 11/07/17 at 18:31; Status DC Sodium Chloride 1,000 ml @ 999 mls/hr BOLUS ONCE IV Last administered on at 18:35; Start 11/07/17 at 18:30; Stop 11/07/17 at 19:30; Status DC Morphine Sulfate (Morphine Inj) 4 mg ONCE ONCE IV PUSH Last administered on 11/07/17at 19:05; Start 11/07/17 at 19:00; Stop 11/07/17 at 19:01; Status DC Enoxaparin Sodium (Lovenox Inj) 80 mg ONCE ONCE SQ Last administered on at 00:15; Start 11/07/17 at 20:00; Stop 11/07/17 at 20:01; Status DC Clonidine (Catapres) 0.2 mg ONCE ONCE PO Last administered on 11/07/17at 20:51; Start 11/07/17 at 20:45; Stop 11/07/17 at 20:46; Status DC Promethazine HCl (Phenergan Inj) 25 mg ONCE ONCE IM Last administered on at 21:09; Start 11/07/17 at 21:15; Stop 11/07/17 at 21:16; Status DC Furosemide (Lasix Inj) 40 mg ONCE ONCE IV PUSH Last administered on 11/07/17at 21:49; Start 11/07/17 at 21:45; Stop 11/07/17 at 21:46; Status DC Labetalol HCl (Trandate Inj) 10 mg BOLUS ONCE IV PUSH Last administered on 11/07at 21:45; Start 11/07/17 at 21:45; Stop 11/07/17 at 21:47; Status DC Labetalol HCl 500 mg/Sodium Chloride 250 ml @ 60 mls/hr TITRATE PRN IV Blood pressure management Last administered on 11/08/17at 04:38; Start 11/07/17 at 21:45 Promethazine HCl (Phenergan Inj) 25 mg Q4H PRN IM N/V resistent to Zofran Last administered on 11/09/17at 09:45; Start 11/07/17 at 22:15 Sodium Chloride (NS Flush) 2 ml UNSCH PRN IV FLUSH FLUSH AFTER USING IV ACCESS ; Start 11/07/17 at 22:15 Sodium Chloride (NS Flush) 2 ml BID IV FLUSH Last administered on 11/10/17 08: 26; Start 11/08/17 at 09:00 Acetaminophen (Tylenol) 650 mg Q4H PRN PO TEMP > 100.4; Start 11/07/17 at 22:15 Ondansetron HCl (Zofran Inj) 4 mg Q6H PRN IVP NAUSEA OR VOMITING Last administered on 11/10/17at 14:48; Start 11/07/17 at 22:15 Naloxone HCl (Narcan Inj) 0.4 mg UNSCH PRN IV PUSH SEE LABEL COMMENTS; Start at 22:15 Senna/Docusate Sodium (Lala-Colace) 1 tab BID PO Last administered on 11/10/17at 08:24; Start 11/08/17 at 09:00 Magnesium Hydroxide (Milk Of Magnesia Liq) 30 ml Q12H PRN PO Mild constipation ; Start 11/07/17 at 22:15 Sennosides (Senokot) 17.2 mg Q12H PRN PO Moderate constipation; Start 11/07/17 at 22:15 Bisacodyl (Dulcolax Supp) 10 mg DAILY PRN RECTAL SEVERE CONSITIPATION; Start at 22:15 Lactulose (Lactulose Liq) 30 ml DAILY PRN PO SEVERE CONSITIPATION; Start at 22:15 Atenolol (Tenormin) 50 mg DAILY PO Last administered on 11/10/17at 08:24; Start 11/08/17 at 09:00 Atorvastatin Calcium (Lipitor) 20 mg HS PO Last administered on 11/09/17 20:26 ; Start 11/08/17 at 21:00 Clonidine (Catapres) 0.2 mg DAILY PO Last administered on 11/09/17at 07:45; Start 11/08/17 at 09:00; Stop 11/09/17 at 11:24; Status DC Pantoprazole Sodium (Protonix) 20 mg DAILY PO Last administered on 11/10/17 08: 25; Start 11/08/17 at 09:00 Tamsulosin HCl (Flomax) 0.4 mg HS PO Last administered on 1/6/18at 20:25; Start 11/08/17 at 21:00 Patient Own Medication PT OWN MED: Trosp... DAILY PO ; Start 11/08/17 at 09:00; Status Future Hold Enoxaparin Sodium (Lovenox Inj) 30 mg Q24H SQ ; Start 11/08/17 at 20:00; Stop 11/08/17 at 20:00; Status DC Hydralazine HCl (Apresoline Inj) 20 mg Q4H PRN IV PUSH SBP>180 or DBP>110 Last administered on 11/09/17at 07:45; Start 11/08/17 at 09:15 Enoxaparin Sodium (Lovenox Inj) 80 mg Q12H SQ Last administered on 11/10/17at 14: 17; Start 11/08/17 at 14:00 Pharmacy Profile Note 0 ml @ 0 mls/hr UNSCH OTHER ; Start 11/08/17 at 12:15 Warfarin Sodium (Coumadin) 5 mg ONCE@1600 ONCE PO Last administered on at 16:13; Start 11/08/17 at 16:00; Stop 11/08/17 at 16:01; Status DC Trimethobenzamide HCl (Tigan Inj) 200 mg Q6H PRN IM NAUSEA/VOMITING Last administered on 11/09/17at 05:47; Start 11/09/17 at 05:30 Metoprolol Tartrate (Lopressor Inj) 5 mg ONCE ONCE IV PUSH Last administered on 11/09/17at 06:45; Start 11/09/17 at 06:45; Stop 11/09/17 at 06:48; Status DC Lisinopril (Prinivil) 10 mg DAILY PO Last administered on 11/10/17at 08:25; Start 11/09/17 at 09:30 Hydralazine HCl (Apresoline) 25 mg Q8HR PO Last administered on 11/10/17at 14:17 ; Start 11/09/17 at 09:30 Nicardipine HCl 25 mg/Sodium Chloride 250 ml @ 50 mls/hr TITRATE PRN IV Blood pressure management Last administered on 11/10/17at 00:49; Start 11/09/17 at 11:30 Clonidine (Catapres) 0.2 mg BID PO Last administered on 11/10/17at 14:21; Start 11/09/17 at 21:00 Amlodipine Besylate (Norvasc) 10 mg DAILY PO Last administered on 11/09/17at 11: 55; Start 11/09/17 at 11:30 Warfarin Sodium (Coumadin) 5 mg DAILY@1600 PO Last administered on 11/09/17at 16: 55; Start 11/09/17 at 16:00 Warfarin Sodium (Coumadin) 2.5 mg DAILY@1600 ONCE PO Last administered on at 16:55; Start 11/09/17 at 16:00; Stop 11/09/17 at 16:01; Status DC Patient Medication Teaching (Coumadin Booklet) 1 ONCE ONCE .XX ; Start 11/09/17 at 16:00; Stop 11/09/17 at 16:01; Status DC Warfarin Sodium (Coumadin) 3 mg ONCE ONCE PO ; Start 11/10/17 at 16:00; Stop 11/10/17 at 16:01 A/P Assessment and Plan This is a 77-year-old male history of coronary disease as post AICD placement, mechanical aortic valve replacement, and AAA status post stent placement who presented with intractable emesis and hypertension urgency Hypertension urgency, asymptomatic -s/p labetolol that caused hypotension. -now hypertensive SBP 200s will need to start cardene gtt. currently on atenolol, clonidine and lisinopril. -Carding drip was started yesterday due to systolic blood pressure in the 200s. That was discontinued at 1 AM. Clonidine and amlodipine was held this morning due to hypotension. Now blood pressure systolic blood pressure 170. Nurse told to give the clonidine 0.2 mg while I was at the bedside. -Continue with amlodipine, clonidine, and hydralazine. -We'll keep in the ICU for close monitoring since blood pressures increasing again. Mechanical aortic valve replacement -Patient seems to be noncompliant. on lovenox and coumadin. pharmacy consult. --Patient currently on Lovenox and Coumadin. INR 1.2. intractable emesis and mild abdominal pain -UA negative. KUB negative. CT scan does not explain abdominal pain. Lipase negative. -Most likely secondary to food poisoning. Patient asymptomatic at the moment. Will advance his diet. Coronary artery disease -continue home medication. 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 Oncologist consulted and stated not urgent and patient [facility]. Status post AAA with stent placement -CT scan shows an included left iliac limb of the aortobiiliac graft. 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 patient has no symptoms and can f/u as outpatient. He will arrange. DVT prophylaxis -Patient on therapeutic Lovenox bridging to Coumadin. Discharge Planning Continue to monitor patient in the [facility] due to very labile blood pressure that require patient to be on drips. Kimberley Woods MD Nov 10, 2017 15:46
[2017-11-10 16:00] VITALS: BP 134/62; PULSE 79; RESP 24; O2SAT 94
[2017-11-10] MEDS ORDERED: WARFARIN SOD 3 MG TAB PO ONE (16:00)
[2017-11-10] MEDS: WARFARIN SOD 5 MG TAB PO SCH (16:00)
[2017-11-10 20:00] VITALS: BP 100/54; PULSE 63; RESP 21; TEMP 98.1; O2SAT 94
[2017-11-10] MEDS: TAMSULOSIN HCL 0.4 MG CAP PO SCH (21:43)
[2017-11-10] MEDS: ATORVASTATIN 20 MG TAB PO SCH (21:44)
[2017-11-11] VITALS (9 sets, daily range): BP systolic 88–127; BP diastolic 54–65; PULSE 61–75; RESP 20–25; TEMP 97.2–98.1; O2SAT 94–97
[2017-11-11] MEDS: ENOXAPARIN SODIUM 80 MG/0.8 ML SYRINGE SQ SCH (02:28)
[2017-11-11 05:55] LABS: INTERNATIONAL NORMALIZED RATIO 1.6 RATIO; PROTHROMBIN TIME - PATIENT 16.1 SEC (9.8-11.6)
[2017-11-11] MEDS: hydrALAZINE HCL 25 MG TAB PO SCH (05:59)
[2017-11-11] MEDS: DOCUSATE SODIUM 50 MG/SENNA 8.6 MG TAB PO SCH (08:26)
[2017-11-11] MEDS: PANTOPRAZOLE SOD 20 MG DELAYED RELEASE TAB PO SCH (08:26)
[2017-11-11] MEDS: SODIUM CHLORIDE 0.9% FLUSH 10 ML FLUSH IV FLUSH SCH (08:26)
[2017-11-11] MEDS: LISINOPRIL 10 MG TAB PO SCH (08:26)
[2017-11-11] MEDS: cloNIDine HCL 0.2 MG TAB PO SCH (08:27)
[2017-11-11] MEDS: ATENOLOL 50 MG TAB PO SCH (08:27)
[2017-11-11] MEDS ORDERED: LISI10TA3 PO (09:48)
[2017-11-11] MEDS ORDERED: HYDR-3799 PO (09:48)
[2017-11-11] MEDS ORDERED: AMLO10 PO (09:48)
[2017-11-11] MEDS ORDERED: CLON.2 PO (09:48)
[2017-11-11] MEDS ORDERED: LISI-519 PO (12:02)
--- NOTE | 2017-11-11 12:04 | HHI.DCPOC ---
Discharge Care Plan Diagnosis: (1) Mass (2) EVAR - left limb occlusion (3) Nausea & vomiting (4) HTN (hypertension) (5) Subtherapeutic anticoagulation Goals to Promote Your Health * To prevent worsening of your condition and complications * To maintain your health at the optimal level Directions to Meet Your Goals Take your medications as prescribed Follow your dietary instruction Follow activity as directed Keep your appointments as scheduled Take your immunizations and boosters as scheduled If your symptoms worsen call your PCP, if no PCP go to Urgent Care Center or Emergency Room Smoking is Dangerous to Your Health. Avoid second hand smoke Call the 24-hour hour crisis hotline for domestic abuse at Kimberley Woods MD Nov 11, 2017 12:04
--- NOTE | 2017-11-11 12:05 | HHI.DS ---
Discharge Summary Admission Date Nov 07, 2017 at 21:53 Discharge Date: Nov 11, 2017 Admitting Diagnosis intractable nausea, hypertensive urgency, abdominal mass (1) Hypertensive urgency ICD Code: I16.0 - Hypertensive urgency Diagnosis: Principal (2) EVAR - left limb occlusion Diagnosis: Secondary (3) Subtherapeutic anticoagulation ICD Code: Z51.81 - Encounter for therapeutic drug level monitoring; Z79.01 - longterm (current) use of anticoagulants Diagnosis: Secondary Status: Acute (4) Mass ICD Code: R22.9 - Localized swelling, mass and lump, unspecified Diagnosis: Secondary (5) Nausea & vomiting ICD Code: R11.2 - Nausea with vomiting, unspecified Diagnosis: Principal Status: Acute (6) S/P aortic valve replacement with metallic valve ICD Code: Z95.4 - Presence of other heart-valve replacement Diagnosis: Secondary Status: Acute Procedures refer to hospital course Brief History - From Admission This is a 77-year-old male past history of coronary artery disease status post AICD placement, AAA with stent placement, aortic valve replacement with artificial metal valve who presented with intractable emesis and hypertension urgency. Patient was woken up by me and did not want to give me a history. He was very upset that I woke him up. When I asked him what brought him in the hospital he stated that "They sent me here." When I asked who was they he stated " I do not know." Patient nurse then walked into the room during the interview. She asked him to sit up and he did. I then tried to ask more questions but he refused to answer. He only seems to answer simple yes or no questions. I also asked him who was managing his Coumadin he stated the [facility]. When I asked him if he took his medication he stated "I take my medication when I'm at home." He denied any emesis, nausea, pain, headache, visual changes, chest pain, palpitation, lightheadedness//dizziness. I also asked patient who his vascular surgeon and manager transplant were he stated that he goes to the [facility] for that. He does follow commands. I reviewed medical records were stated that patient was recently admitted at [facility] where he was admitted due to CHF exacerbation and supratherapeutic INR. He was discharged on Lovenox bridging with Coumadin. Then patient developed nausea and vomiting after eating a tuna salad. It was also discovered in the ED that he was hypertensive with a systolic blood pressure in the 200. He was put on a labetalol drip and was transferred to the [facility]. During my interview with the patient he is now hypotensive and off the labetalol drip. When I discussed CT scan results about a possible mass. Patient stated that he has no history of cancer. All other review of system reviewed and negative. CBC/BMP: 11/08/17 0406 11/08/17 0406 Significant Findings Laboratory Tests Test 11/09/17 06:25 11/09/17 14:46 11/09/17 15:00 11/10/17 07:03 Lactate Dehydrogenase 330 U/L (87-241) Urine Mucus FEW /lpf (OCC) Prothrombin Time 11.7 SEC (9.8-11.6) Test 11/11/17 05:18 Prothrombin Time 16.1 SEC (9.8-11.6) Imaging Last Impressions Abdomen X-Ray 11/09/17 0000 Signed Impressions: Service Date/Time: Thursday, November 09, 2017 15:10 - CONCLUSION: 1. No evidence of obstruction. Shin Jackson MD Chest X-Ray 11/07/17 1702 Signed Impressions: Service Date/Time: November 17:36 - CONCLUSION: 1. Cardiomegaly. No acute pulmonary disease. Shin Jackson MD Abdomen/Pelvis CT 11/07/17 1546 Signed Impressions: Service Date/Time: November 17:00 - CONCLUSION: 1. 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 2. Occluded left iliac limb of the aortobiiliac graft. 3. Probable scar or atelectasis and/or infiltrate left lung base and follow up is suggested with noncontrast chest CT in 6 months. Juana Michel MD PE at Discharge GENERAL: in NAD CARDIOVASCULAR: Regular rate and rhythm without murmurs, gallops, or rubs. RESPIRATORY: Breath sounds equal bilaterally. No accessory muscle use. GASTROINTESTINAL: Abdomen soft and nondistended. Negative for any tenderness to palpation. negative peritoneal signs. MUSCULOSKELETAL: No cyanosis, or edema. Pt update on day of discharge f/u for hypertensive urgency and N/V patient tolerating diet. He denied any N/V or abdominal pain. PT worked with him and he was cleared. off gtt patient stated bad to his baseline. he stated ready to go today but needs to go to [facility] to get his medication. Hospital Course This is a 77-year-old male history of coronary disease as post AICD placement, mechanical aortic valve replacement, and AAA status post stent placement who presented with intractable emesis and hypertension urgency Hypertension urgency, asymptomatic -s/p labetolol that caused hypotension. -now hypertensive SBP 200s will need to start cardene gtt. currently on atenolol, clonidine and lisinopril. -Carding drip was started yesterday due to systolic blood pressure in the 200s. That was discontinued at 1 AM. Clonidine and amlodipine was held this morning due to hypotension. Now blood pressure systolic blood pressure 170. Nurse told to give the clonidine 0.2 mg while I was at the bedside. -Continue with amlodipine, clonidine, and hydralazine. -We'll keep in the ICU for close monitoring since blood pressures increasing again. Mechanical aortic valve replacement -Patient seems to be noncompliant. on lovenox and coumadin. pharmacy consult. --Patient currently on Lovenox and Coumadin. INR 1.2. intractable emesis and mild abdominal pain -UA negative. KUB negative. CT scan does not explain abdominal pain. Lipase negative. -Most likely secondary to food poisoning. Patient asymptomatic at the moment. Will advance his diet. Coronary artery disease -continue home medication. 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 Oncologist consulted and stated not urgent and patient wants to follow up with his doctors at the [facility]. Status post AAA with stent placement -CT scan shows an included left iliac limb of the aortobiiliac graft. 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 patient has no symptoms and can f/u as outpatient. He will arrange. DVT prophylaxis -Patient on therapeutic Lovenox bridging to Coumadin. Pt Condition on Discharge: Good Discharge Disposition: Discharge Home Discharge Instructions DIET: Follow Instructions for: Heart Healthy Diet, Coumadin (Warfarin) Diet Activities you can perform: Regular-No Restrictions Follow up Referrals: Oncology - 1 Week PCP Follow-up - 3-5 Days Vascular Surgery @ Vascular Surgery with Sukhjinder العلي MD New Medications: Lisinopril (Lisinopril) 5 Mg Tab 5 MG PO DAILY for Blood Pressure Management, #30 TAB 0 Refills Amlodipine (Norvasc) 10 Mg Tab 10 MG PO DAILY for hypertension, #30 TAB 0 Refills Clonidine (Catapres) 0.2 Mg Tab 0.2 MG PO BID for hypertension, #60 TAB 0 Refills Continued Medications: Albuterol 18 GM Inh (Ventolin Hfa 18 GM Inh) 90 Mcg/Act Aer 1 PUFF INH Q4H PRN for SHORTNESS OF BREATH, #1 INHALER 0 Refills Atenolol (Atenolol) 50 Mg Tab 50 MG PO DAILY for Blood Pressure Management, #30 TAB 0 Refills Atorvastatin (Atorvastatin) 20 Mg Tab 20 MG PO HS for Cholesterol Management, #30 TAB 0 Refills Cholecalciferol (Vitamin D3) 1,000 Unit Cap 1000 UNITS PO DAILY for Nutritional Supplement, #1 BOTTLE 0 Refills Enoxaparin Inj (Lovenox Inj) 80 mg/0.8 ML Syr 80 MG SQ DAILY for Blood Clot Prevention, SYRINGE 0 Refills Ondansetron Odt (Zofran Odt) 4 Mg Tab 4 MG SL Q6HR PRN for Nausea/Vomiting, #15 TAB 0 Refills Pantoprazole (Pantoprazole) 20 Mg Tab 20 MG PO DAILY for Reflux, #30 TAB 0 Refills Potassium Chloride ER (Potassium Chloride ER) 20 Meq Tab 20 MEQ PO DAILY for Electrolyte Replacement, #30 TAB 0 Refills Tamsulosin (Tamsulosin) 0.4 Mg Cap 0.4 MG PO HS for Manage Prostate Problems, #30 CAP 0 Refills Tramadol (Tramadol) 50 Mg Tab 50 MG PO Q6H PRN for PAIN, TAB 0 Refills Trospium ER (Trospium ER) 60 Mg Cap 20 MG PO DAILY for Urinary Symptom Managemen, #30 CAP 0 Refills Warfarin (Warfarin) 5 Mg Tab 5 MG PO DAILY for Blood Clot Prevention, #30 TAB 0 Refills Discontinued Medications: Clonidine (Clonidine) 0.2 Mg Tab 0.2 MG PO DAILY for Blood Pressure Management, #60 TAB 0 Refills Kimberley Woods MD Nov 11, 2017 12:05
== END 2017-11-11 13:10 | disposition home or self-care (01) | DRG 918 ==
LOC: NEPC 15:31 → NEDA 21:53 → HIMN 23:00
PROVIDERS: ADMIT Family Medicine; ATTEND Family Medicine
DX: T62.8X1A Toxic effect of other specified noxious substances eaten as food, accidental (unintentional), initial encounter (principal); J98.11 Atelectasis; T82.858A Stenosis of other vascular prosthetic devices, implants and grafts, initial encounter; I50.9 Heart failure, unspecified; I11.0 Hypertensive heart disease with heart failure; I16.0 Hypertensive urgency; G62.9 Polyneuropathy, unspecified; R19.00 Intra-abdominal and pelvic swelling, mass and lump, unspecified site; I25.10 Atherosclerotic heart disease of native coronary artery without angina pectoris; K21.9 Gastro-esophageal reflux disease without esophagitis; I73.9 Peripheral vascular disease, unspecified; I25.2 Old myocardial infarction; I95.2 Hypotension due to drugs; T44.8X5A Adverse effect of centrally-acting and adrenergic-neuron-blocking agents, initial encounter; Y92.239 Unspecified place in hospital as the place of occurrence of the external cause; Z79.01 Long term (current) use of anticoagulants; Z86.73 Personal history of transient ischemic attack (TIA), and cerebral infarction without residual deficits; Z86.79 Personal history of other diseases of the circulatory system; Z91.19 Patient's noncompliance with other medical treatment and regimen; Z95.2 Presence of prosthetic heart valve; Z95.5 Presence of coronary angioplasty implant and graft; Z95.810 Presence of automatic (implantable) cardiac defibrillator; Z96.652 Presence of left artificial knee joint
CPT/HCPCS: 71045; 74018; 74177; 80048; 80053; 81001; 83615; 83690; 83880; 85025; 85610; 85730; 87641; 93005; 94002; 96361; 96372; 96374; 96375; 96376; J0360; J1650; J1885; J1940; J2270; J2405; J2550; J2765; J3250; J7030; J7050; Q9967